=== PATIENT | female | born 1965 | race Caucasian/White ===

== ENCOUNTER 2024-03-11 13:45 | Outpatient (REF) | payer OTHER, SELFPAY ==
--- NOTE | ~2024-03-11 | XR_ITS ---
EXAMINATION: XR HAND RIGHT CLINICAL INFORMATION: Pain in right hand. M79.641. Patient states pain for a month on second digit. Painful nodule at base of 2nd metacarpal. COMPARISON: None TECHNIQUE: PA, lateral, and oblique views of the right hand. FINDINGS: Normal bone mineralization. No fracture, dislocation, or suspicious focal bony lesion. Normal alignment. In the second digit, ulnar aspect of the PIP joint, there is a punched-out appearing a marginal periarticular erosion, suspicious for gouty arthropathy. There is mild soft tissue swelling of this region. No additional significant arthropathy. There is a bone island in the fifth digit middle phalanx. Carpal bones are intact, normally aligned, without arthritis. Soft tissues otherwise normal. XR/XR hand RT min 3V IMPRESSION: 1. Findings suspicious for gouty arthropathy of the PIP joint of the second digit. 2. Remainder of the examination is normal. Electronically signed by: Ed Henry MD 04/20/2024 08:39 AM [facility]
[2024-03-11 15:07] LABS: MANUAL DIFF FLAG NO
[2024-03-11 16:08] LABS: Basophils Percent Auto 0.3 % (0-2); Eosinophils Absolute Auto 0.1 X10*3/uL (0.0-0.4); Eosinophils Percent Auto 0.8 % (0-4); Hematocrit 38.6 % (37.0-47.0); Hemoglobin 13.2 g/dl (12.0-16.0); Imm Gran Abs Auto 0.03 X10*3/uL (0.00-0.03); Imm Gran Pct Auto 0.4 % (0.0-0.4); Lymphocytes Absolute Auto 1.9 X10*3/uL (1.2-4.9); Lymphocytes Percent Auto 25.9 % (20-40); Mean Corpuscular HGB Conc 34.2 g/dl (31.0-35.0); Mean Corpuscular Hemoglobin 31.3 pg (27.0-33.0); Mean Corpuscular Volume 91.5 fL (80.0-98.0); Mean Platelet Volume 9.9 fL (9.4-12.3); Monocytes Absolute Auto 0.5 X10*3/uL (0.1-1.2); Monocytes Percent Auto 7.1 % (2-11); Neutrophils Absolute Auto 4.9 x10*3/uL (2.0-8.3); Neutrophils Percent Auto 65.5 % (45-73); Platelet Count 277 X10*3/uL (160-400); Red Blood Count 4.22 X10*6/uL (4.20-5.50); Red Cell Distribution Width 12.7 % (11.0-16.0); White Blood Count 7.5 X10*3/uL (4.8-10.8)
[2024-03-11 16:35] LABS: Aspartate Amino Transferase 29 U/L (5-31); Estimated Glomerular Filt Rate > 60
[2024-03-11 16:58] LABS: Alanine Aminotransferase 25 U/L (0-31)
== END 2024-03-11 13:46 | disposition home or self-care (01) ==
LOC: HO.LAB 13:45
PROVIDERS: PCP Physician Assistant Surgical; Visit Provider Internal Medicine Rheumatology
DX: M79.641 Pain in right hand (principal); Z79.60 Long term (current) use of unspecified immunomodulators and immunosuppressants
CPT/HCPCS: 36415; 73130; 82565; 84450; 84460; 85025

== ENCOUNTER 2024-03-11 13:45 | Outpatient (AMB) | payer OTHER, SELFPAY ==
--- OUTSIDE RECORDS SUMMARY | 2024-03-11 13:47 | XMS_ITS | Patient Health Record ---
Author Organization [facility] Address [address] [place] [address] Care Team Providers Care Straw Hat Plunger Operator Name Role Phone Valdemar Shannon Primary Care Provider Unavailzayda e Black, Yessica Unavailable [phone] Allergies Allergen (clinical drug ingredient) Drug/Non Drug Allergy documented on EMR Reaction Allergy Type Onset Date Status acetaminophen / oxycodone Percocet swelling, itchy, rash Drug Allergy Active sulfa Swelling, itchy, rash Drug Allergy Active Reason For Referral No Information Medications Medication SIG (Take, Route, Fr equency, Duration) Notes Start Date End Date Status Custom Orthotics as directed 01/12/2016 Active Zetia Active AFO-fixed . 1 . Wear daily for . 06/12/2016 Active Ibuprofen 800 MG 1 tablet Orally Thre e times a day for 30 day(s) 05/28/2016 Active Physical Therapy 3-4x per week for 3-4 weeks 06/12 Active Physical Therapy 3-4x per week for 3-4 weeks Active Calan 240 mg Active Spironolactone Activ e Diane Active Social History Tobacco Use: Social History Observation Description Date Details (start date - stop date) Never Smoker NA - NA Tobacco Use/Smoking Question Answer Notes Are you a: nonsmoker Additional Findings: Tobacco Non-User Current no n-smoker Alcohol Screen Question Answer Notes Did you have a drink contain ing alcohol in the past year? Yes How often did you have a dri nk containing alcohol in the past year? 2 to 4 times a month (2 points) Points 2 Interpretation Negative Tobacco use other than smoking: Question Answer Notes Are you an other tobacco user? No Problems Problem Type SNOMED Code ICD Code Onset Dates Problem Status W/U Status Risk Notes Problem Localized, primary osteoarthritis of the ankle and/or foot (287736219) Primary osteoarthrit is, left ankle and foot (M19.072) Active confirmed Plan Of Treatment Pending Test Test Name Order Date MRI : Foot, left 05/23/2016 Tc99 3 phase Bone Scan 05/07/2016 34812-Blchhsft Plate 05/07/2016 49535-Ogxxhnlg Plate 04/24/2016 28806-Qcwuuwex Plate 05/23/2016 19401-Xmfdaefe Plate 05/28/2016 24719-Gjtipjed Plate 06/12/2016 15735-Hsiozxjv Plate 07/03/2016 17978- Debride <25 sq cm 07/03/2016 11997- Debride <25 sq cm 06/12/2016 12891- Debride <25 sq cm 05/28/2016 61151- Debride <25 sq cm 05/23/2016 14787- Debride <25 sq cm 05/07/2016 33116, J6112-CEOMS/INJECT, JOINT/BURSA 1 04/21/2015 Next Appt Details Provider Name:Yessica Mack , 04/14/2024 01:00:00 PM, [address] [facility], [place], [address], Insurance Providers Payer Name Payer Address Payer Phone Subscriber Number Group Number Insured Name Patient Relationship to Insured Coverage Start Date Coverage End Date [facility] [address] [place] [address] [phone] [id number] Leeann Camacho Self - patient is the insured Medical (General) History Medical History History ICD Code Chicken pox Gall bladder problems Headaches Surgical History Surgery Date(Month/Year) gall stones 1996 carpal tunnel surgery Vericose veins 2011
[2024-03-11 13:51] VITALS: BP 122/72; PULSE 71; O2SAT 97; BMI 28.0
--- NOTE | 2024-03-11 13:51 | MHC.OFFVIS ---
Vital Signs 03/11/24 13:51 Height 5 ft 6.5 in Weight 176 lb 5.917 oz BMI 28.0 BP 122/72 Blood Pressure Location Lt brachial Position Sitting Pulse 71 Pulse Source Pulse Oximeter Pulse Oximetry (%) 97 Oxygen Delivery Method Room Air Intake Visit Reasons: Arthitis Intake Note: Patient presents for follow up on osteoarthritis. Allergies Sulfa (Sulfonamide Antibiotics) Allergy (Intermediate, Verified 03/11/24 13:55) Itching acetaminophen [From Percocet] Allergy (Mild, Verified 03/11/24 13:55) rash, itchy oxycodone [From Percocet] Allergy (Mild, Verified 03/11/24 13:55) rash, itchy hydrocet Allergy (Mild, Uncoded 03/11/24 13:55) rash, itchy HPI HPI Arthitis: Details: Over a week ago she has noticed a painful nodule on the palmar aspect of her hand. Pressure applied to it when she is handling things elicits pain. She continues to take Celebrex 200 mg twice a day. [facility] Medical History (Updated 03/11/24 @ 14:19 by Bipin Toro MD) Varicose veins of both lower extremities Osteoarthritis Surgical History (Updated 03/11/24 @ 13:59 by Kinsey Cantrell CMA) H/O removal of cyst S/P foot surgery Family History (Updated 03/11/24 @ 14:00 by Kinsey Cantrell CMA) Father Bladder cancer Melanoma Mother Afib Social History (Updated 03/11/24 @ 14:01 by Kinsey Cantrell CMA) Alcohol intake: current Alcohol intake frequency: holidays/special occasions only Alcohol type: wine Patient Tobacco Use Status: Never used Tobacco Review of Systems Const All systems reviewed & are unremarkable except as noted in HPI and below Physical Exam Vital Signs: Last Vital Signs Pulse 71 03/11/24 13:51 BP 122/72 03/11/24 13:51 Pulse Ox 97 03/11/24 13:51 Oxygen Delivery Method Room Air 03/11/24 13:51 BMI result Body Mass Index 28.0 Const Other: General: Comfortable CVS: RRR Respiratory: clear to auscultation bilaterally. Good respiratory effort Skin: No lesions seen MSK: Tender nodule less than 0.5 mm diameter palpated palmar aspect at the base of 2nd metacarpal right hand. Heberden's nodes present. Subluxation at DIPs. No synovitis. She is able to make a fist with her hands. Assessment & Plan Assessment & Plan (1) Osteoarthritis of hands, bilateral: Comment: Pain is controlled on Celebrex. In the past she has had kidney insufficiency. Code(s): M19.041 - Primary osteoarthritis, right hand; M19.042 - Primary osteoarthritis, left hand Category: Medical Qualifiers: Osteoarthritis type: primary Qualified Code(s): M19.041 - Primary osteoarthritis, right hand; M19.042 - Primary osteoarthritis, left hand Plan: Labs ordered for drug monitoring on chronic NSAID Continue Celebrex 200 mg twice a day [facility] Return to clinic in 3 months (2) Hand pain, right: Comment: Acute onset painful nodule at the base of 2nd metacarpal of unclear etiology. I will obtain x-ray for further evaluation. 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
== END 2024-03-11 14:20 | disposition home or self-care (01) ==
PROVIDERS: PCP Physician Assistant Surgical; Visit Provider Internal Medicine Rheumatology
DX: M19.041 Primary osteoarthritis, right hand (principal); M19.042 Primary osteoarthritis, left hand; M79.641 Pain in right hand
CPT/HCPCS: 99213

== ENCOUNTER → 2024-03-11 15:09 | Outpatient (BNV) | payer OTHER, SELFPAY | PROVIDERS: PCP Physician Assistant Surgical; Visit Provider Radiology Diagnostic Radiology | DX: M85.842 Other specified disorders of bone density and structure, left hand (principal) | CPT/HCPCS: 73130 ==

== ENCOUNTER 2024-04-21 14:40 | Outpatient (REF) | payer OTHER, SELFPAY ==
[2024-04-21 16:50] LABS: C Reactive Protein < 0.10 mg/dL (< or = 0.50)
[2024-04-21 16:56] LABS: Rheumatoid Factor < 13.0 IU/mL (<15.0)
--- OUTSIDE RECORDS SUMMARY | 2024-04-21 17:11 | XMS_ITS | Patient Health Record ---
Author Organization [employer] [facility] Address [address] [place] [address] Care Team Providers Care Steel Roller Name Role Phone GINA BARON Primary Care Provider JUSTIN Nicholson Unavailable [phone] Allergies Allergen (clinical drug ingredient) Drug/Non Drug Allergy documented on EMR Reaction Allergy Type Onset Date Status acetaminophen / oxycodone Percocet ITCHY, RED, SWELLING Drug Allergy Active Substance with sulfonamide structure and antibacterial mechanism of action (substance) Sulfa Antibiotics RASH, ITCHY, RED Drug Allergy Active Reason For Referral No Information Medications Medication SIG (Take, Route, Fr equency, Duration) Notes Start Date End Date Status Estradiol 10 MCG 1 tablet Vaginal Thr ee times a Week for 365 days 11/03/2023 Active Calan SR 240 MG Active Celecoxib 200 MG 1 capsule with food Orally Once a day Active Simvastatin 10 MG 2 tablets in the jie librado Orally Once a day Active Social History Tobacco Use: Social History Observation Description Date Details (start date - stop date) Never Smoker NA - NA AUDIT-C (Standard) Question Answer Notes Did you have a drink contain ing alcohol in the past year? Yes How often did you have six o r more drinks on one occasion in the past year? Never (0 point) How many drinks did you have on a typical day when you were drinking in the past year? 1 or 2 drinks (0 point) How often did you have a dri nk containing alcohol in the past year? 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 Problem Hyperlipidemia (71751878) Hyperlipidemia, unspecified (E78.5) Active confirmed Problem Refractory migraine with aura (624532786) Migraine with aura, intractable, without status migrainosus (G43.119) Active confirmed Vital Signs Temperature 98.0 degrees Fahrenheit 11/03/2023 Blood pressure diastolic 82 mm Hg 11/03/2023 Height 65 in 11/03/2023 Blood pressure systolic 116 mm Hg 11/03/2023 Weight 165 lbs 11/03/2023 BMI 27.45 kg/m2 11/03/2023 Encounters Encounter Location Date Provider Diagnosis [facility] [address] [place] [address] 11/03/2023 JUSTINIsis PIERCECASTRO Encounter for gynecological examination (general) (routine) without abnormal findings Z01.419 ; Encounter for screening mammogram for malignant neoplasm of breast Z12.31 and Postmenopausal atrophic vaginitis N95.2 Assessments Encounter Date Diagnosis (ICD Code) Assessment Notes Treatment Notes Treatment Clinical Notes Section Notes 11/03/2023 Encounter for gynecological examination (general) (routine) without abnormal findings (ICD-10 - Z01.419) During the visit, the following areas of concern were addressed: Discussed cervical cancer screening with either cytology alone every 3 years or high risk HPV co-testing every 5 years as per ASCCP guidelines. Advised continued annual pelvic exams. Patient encouraged to increase her level of exercise. SBE technique encouraged/tau ght. Patient reminded when annual mammogram is due. Patient encouraged to keep colon screening up to date. 11/03/2023 Encounter for screening mammogram for malignant neoplasm of breast (ICD-10 - Z12.31) 11/03/2023 Postmenopausal atrophic vaginitis (ICD-10 - N95.2) Plan Of Treatment Pending Test Test Name Order Date MM Digital Screening Mammogram 3D 2023 Next Appt Details Provider Name:JUSTIN RIVERA Darlene, 11/04/2024 08:30:00 AM, [address], [place], [address], Insurance Providers Payer Name Payer Address Payer Phone Subscriber Number Group Number Insured Name Patient Relationship to Insured Coverage Start Date Coverage End Date [facility] [address] [facility] [place], [place] [address] [id number] DOMI MARTIN Self - patient is the insured 2 Medical (General) History Medical History History ICD Code Hyperlipidemia, unspecified E78.5 Migraine with aura, intractable, without status migrainosus G43.119 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
--- OUTSIDE RECORDS SUMMARY | 2024-04-21 17:11 | XMS_ITS | Patient Health Record ---
Author Organization [facility] Address [address] [place] [address] Care Team Providers Care Director Of Cardiac Rehabilitation Name Role Phone Shiva Valdemar Primary Care Provider Unavailabl e Black, Yessica Unavailable [phone] Allergies Allergen (clinical drug ingredient) Drug/Non Drug Allergy documented on EMR Reaction Allergy Type Onset Date Status Hydrocet hyperactivity Drug Allergy Act jeanne acetaminophen / oxycodone Percocet hyperactivity Drug Allergy Active Substance with sulfonamide structure and antibacterial mechanism of action (substance) Sulfa Antibiotics swelling, itchy, rash Drug Allergy Active Reason For Referral No Information Medications Medication SIG (Take, Route, Frequency, Duration) Notes Start Date End Date Status Terbinafine HCl 250 MG 1 tablet Orally O nce a day for 7 days days then stop for 3 weeks repeat cycle for 90 days 04/14/2024 Active CeleBREX 200 MG 1 capsule with food Orally Once a day Active Calan 240 mg Active Diane Not-Taking Zetia Not-Taking Custom Orthotics as directed 01/12/2016 Not-Taking Ibuprofen 800 MG 1 tablet Orally Thre e times a day for 30 day(s) 05/28/2016 Not-Ta lam AFO-fixed . 1 . Wear daily for . 06/12/2016 Not-Taking Physical Therapy 3-4x per week for 3- 4 weeks 06/12/2016 Not-Taking Physical Therapy 3-4x per week for 3- 4 weeks Not-Taking Simvastatin 10 MG 2 tablets in the jie librado Orally Once a day Active Spironolactone 25 MG 1 tablet Orally Active Social History Tobacco Use: Social History Observation Description Date Details (start date - stop date) Never Smoker NA - NA Tobacco use other than smoking: Question Answer Notes Are you an other tobacco user? No Tobacco Control (Standard) Question Answer Notes Tobacco use: Nonsmoker Additional Findings: Tobacco non-user Current no nsmoker AUDIT-C (Standard) Question Answer Notes Did you have a drink contain ing alcohol in the past year? Yes How often did you have six o r more drinks on one occasion in the past year? Declined to specify (0 point) How many drinks did you have on a typical day when you were drinking in the past year? Declined to specify (0 point) How often did you have a dri nk containing alcohol in the past year? 2 to 4 times a month (2 points) Points 2 Interpretation Negative Problems Problem Type SNOMED Code ICD Code Onset Dates Problem Status W/U Status Risk Notes Problem Localized, primary osteoarthritis of the ankle and/or foot (654464825) Primary osteoarthrit is, left ankle and foot (M19.072) Active confirmed Vital Signs Blood pressure diastolic 55 mm Hg 04/14/2024 Height 5ft 7in in 04/14/2024 Blood pressure systolic 136 mm Hg 04/14/2024 Weight 165 lbs 04/14/2024 BMI 25.84 kg/m2 04/14/2024 Encounters Encounter [facility] Date [facility] [address] 04/14/2024 Yessica Black Pain in right toe(s) M79.674 ; Onychomycosis B35.1 and Pain in left toe(s) M79.675 [facility] [address] [place] [address] 04/14/2024 Yessica Black Assessments Encounter Date Diagnosis (ICD Code) Assessment Notes Treatment Notes Treatment Clinical Notes Section Notes 04/14/2024 Pain in right toe(s) (ICD-10 - M79.674) 04/14/2024 Onychomycosis (ICD-10 - B35.1) 04/14/2024 Pain in left toe(s) (ICD-10 - M79.675) Plan Of Treatment Pending Test Test Name Order Date MRI : Foot, left 05/23/2016 Tc99 3 phase Bone Scan 05/07/2016 *Liver Function Test (LFT) 04/15/2024 45119-Jqiwnqzy Plate 06/12/2016 13275-Kzatilen Plate 07/03/2016 02929-Bvhybnqo Plate 05/07/2016 74112-Mjvcysxv Plate 04/24/2016 51892-Ovdbtolj Plate 05/23/2016 39305-Vtpxvgqn Plate 05/28/2016 26125- Debride <25 sq cm 05/28/2016 68508- Debride <25 sq cm 05/23/2016 47113- Debride <25 sq cm 05/07/2016 54304- Debride <25 sq cm 07/03/2016 03182- Debride <25 sq cm 06/12/2016 05819, E8709-LLHYZ/INJECT, JOINT/BURSA 1 04/21/2015 Next Appt Details Provider Name:Yessica Marinelli Frederick , 07/13/2024 03:00:00 PM, [address] [facility], [place], [address], Insurance Providers Payer Name Payer Address Payer Phone Subscriber Number Group Number Insured Name Patient Relationship to Insured Coverage Start Date Coverage End Date [facility] [address] [place] [address] [id number] Leeann Camacho Self - patient is the insured 2 Medical (General) History Medical History History ICD Code Chicken pox Gall bladder osteoarthritis CAD (Cholesterol) covid-19 Headaches/Migraines Surgical History Surgery Date(Month/Year) gall stones 1996 carpal tunnel surgery Vericose veins 2010 Gall bladder removal 1995 left foot- tendon transfer, heel shift, muscle relief 2016
--- OUTSIDE RECORDS SUMMARY | 2024-04-21 17:11 | XMS_ITS ---
Author Organization [facility] Address [address] [place] [address] Care Team Providers Care Field Spec Name Role Phone Shannon Valdemar Primary Care Provider Unavailabl e Black, Yessica Unavailable [phone] Allergies Allergen (clinical drug ingredient) Drug/Non Drug Allergy documented on EMR Reaction Allergy Type Onset Date Status Hydrocet hyperactivity Drug Allergy Act jeanne acetaminophen / oxycodone Percocet hyperactivity Drug Allergy Active Substance with sulfonamide structure and antibacterial mechanism of action (substance) Sulfa Antibiotics swelling, itchy, rash Drug Allergy Active REASON FOR VISIT Fungal Nails Medications Medication SIG (Take, Route, Frequency, Duration) Notes Start Date End Date Status Terbinafine HCl 250 MG 1 tablet Orally O nce a day for 7 days days then stop for 3 weeks repeat cycle for 90 days 04/14/2024 Active Ibuprofen 800 MG 1 tablet Orally Thre e times a day for 30 day(s) 05/28/2016 Not-Ta lam AFO-fixed . 1 . Wear daily for . 06/12/2016 Not-Taking Physical Therapy 3-4x per week for 3- 4 weeks 06/12/2016 Not-Taking Physical Therapy 3-4x per week for 3- 4 weeks Not-Taking CeleBREX 200 MG 1 capsule with food Orally Once a day Active Calan 240 mg Active Diane Not-Taking Zetia Not-Taking Custom Orthotics as directed 01/12/2016 Not-Taking Simvastatin 10 MG 2 tablets in [...] month (2 points) Points 2 Interpretation Negative Vital Signs Height 5ft 7in in 04/14/2024 Weight 165 lbs 04/14/2024 BMI 25.84 kg/m2 04/14/2024 Blood pressure systolic 136 mm Hg 04/14/19 25 Blood pressure diastolic 55 mm Hg 025 Encounters Encounter Location Date Provider Diagnosis [facility] [place] [address] [place] [address] 04/14/2024 Yessica Mack Pain in right toe(s) M79.674 ; Onychomycosis B35.1 and Pain in left toe(s) M79.675 Assessments Encounter Date Diagnosis (ICD Code) Assessment Notes Treatment Notes Treatment Clinical Notes Section Notes 04/14/2024 Pain in right toe(s) (ICD-10 - M79.674) 04/14/2024 Onychomycosis (ICD-10 - B35.1) 04/14/2024 Pain in left toe(s) (ICD-10 - M79.675) Plan Of Treatment Medication Medication Name Sig Start Date Stop Date Notes Terbinafine HCl 250 MG 1 tablet Orally O nce a day for 7 days days then stop for 3 weeks repeat cycle for 90 days 04/14/2024 Next Appt Details Follow Up: 2-3 Months, Sherie n: Provider Name:Yessica Mack , 07/13/2024 03:00:00 PM, [address] [facility], [place], [address], Progress Notes * Migue MARTIN:1965 (58 yo F)Acc No.[id number]:04/14/2024 Progress Notes Patient:?Leeann MARTIN Provider:?Yessica Mack DPM :1965???Age:58 Y???Sex:Female D ate:04/14/2024 Address: [address], [id number] Pcp:Valdemar Shannon Subjective: * Chief Complaints: * ???Fungal Nails * HPI: ???Painful Nails:?Pt States Last PCP Visit:?Date:?03/12/2024 ?Nature:?aching, tender, discolored, thick.?Location:?, Both feet.?Duration:?, several months.?Course:?worse.?Aggravated by:?shoegear causing difficulty standing/walking.?Treatments:?none.? * ROS:?General/Constitutional:?Nausea?denies.?Vomiting?denies.?Hunger Thirst?denies.?Loss appetite?denies.?Chills?denies.?Fatigue?denies.?Fever?denies.?Night Sweats?denies.?Unexplained weight loss?denies.?Unexplained weight gain?denies.?HEENTM:?Dentures?denies.?Dizziness?denies.?Glasses/contacts?denies.?Retinopathy?de nies.?Blurred/double vision?denies.?TMJ?denies.?Discharge/drainage?denies.?Implants?denies.?Sore throat?denies.?Dental implants?denies.?Hard of hearing ?denies.?Difficulty chewing/swallowing/speaking?denies.?Nose bleeds?denies.?Sore mouth?denies.?Respiratory:?On Oxygen?denies.?Pneumonia/pleurisy?denies.?Bronchitis?denies.?Emphysema?denies.?C oughing?denies.?Cough blood?denies.?Shortness of breath?denies.?Wheezing?denies.?Cardiovascular:?Pacemaker?denies.?MVP?denies.?WPW?denies.?CHF?denies.?Heart attack?denies.?Septal defect?denies.?Rapid beat?denies.?Chest pain ?denies.?Atrial Fib.?denies.?Murmur/Palpitations?denies.?Gastrointestinal:?Hemorrhoids?denies.?Stomach/Abdominal pain?denies.?Dark blood stool?denies.?Irritable bowel ?denies.?Constipation?denies.?Diarrhea?denies.?Hematology:?Swelling?denies.?Clots?denies.?Varicose Veins?denies.?Bruising?denies.?Bleeding problem?denies.?Genitourinary:?Blood urine?denies.?Frequent/Painfu/urination/bladder control?denies.?Kidney stones?denies.?Infection (UTI)?denies.?Nephropathy?denies.?sex trans dis (STD)?denies.?Prostate?denies.?Musculoskeletal:?Hammertoes?admits.?Bunions?denies.?Back Pain?denies.?Muscle Cramps/ Resting?admits.?Muscle cramps / walking?denies.?Generalized aches and pains?denies.?Weakness?denies.?Integ.:?Brewster?denies.?Scars?denies.?Corns/calluses?denies.?Ingrown nails?admits.?Painful nails?admits.?Open Sores?denies.?Rashes?denies.?Neurologic:?Difficulty sleeping?denies.?Brain disorder?denies.?Numbness?denies.?Balance trouble?denies.?Confusion?denies.?Fainting/blackouts?denies.?Tingling?denies.?Tr emors?denies.? * Medical History:? * Surgical History:?gall stone s 1996carpal tunnel surgery Vericose veins 2011Gall bladder removal 1996left foot- tendon transfer, heel shift, muscle relief 2016 * Hospitalization/Major Diagno stic Procedure:?Denies Past Hospitalization * Family History:?Mother: dece ased, foot problems, poor circulation, diagnosed with Unspecified essential hypertension, Family history of arthritis.?Father: , kidney/liver disease, diagnosed with Other malignant neoplasm of unspecified site, Unspecified essential hypertension.?Siblings: diagnosed with Unspecified essential hypertension.? * Social History:?Tobacco Use:?Tobacco use other than smoking?Are you an other tobacco user??No ?Tobacco Control (Standard)?Tobacco use:?Nonsmoker ?Additional Findings: Tobacco non-user?Current nonsmoker ???Drugs/Alcohol:?Drugs?Have you used drugs other than those for medical reasons in the past 12 months??No ???Miscellaneous:?Caffeine: yes, 1-2 cups per day. ?Children: yes. ?Exercise: yes, walking, gardening/yard work, softball. ?Marital status: . ?Occupation: [employer]. ???Drug/Alcohol:?AUDIT-C (Standard)?Did you have a drink containing alcohol in the past year??Yes ?How often did you have six or more drinks on one occasion in the past year??Declined to specify (0 point) ?How many drinks did you have on a typical day when you were drinking in the past year??Declined to specify (0 point) ?How often did you have a drink containing alcohol in the past year??2 to 4 times a month (2 points) ?Points?2 ?Interpretation?Negative * Medications:?TakingSimvastat in 10 MG Tablet 2 tablets in the evening Orally Once a day Spironolactone 25 MG Tablet 1 tablet Orally CeleBREX 200 MG Capsule 1 capsule with food Orally Once a day Calan 240 mg Taking Simvastatin 10 MG Tablet 2 tablets in the evening Orally Once a day Taking Spironolactone 25 MG Tablet 1 tablet Orally Taking CeleBREX 200 MG Capsule 1 capsule with food Orally Once a day Taking Calan 240 mg Not-Taking/PRNHeather Zetia Custom Orthotics as directed Ibuprofen 800 MG Tablet 1 tablet Orally Three times a day AFO-fixed . Ankle-Foot Orthotic 1 . Wear daily Physical Therapy 3-4x per week for 3-4 weeks Physical Therapy 3-4x per week for 3-4 weeks Medication List reviewed and reconciled with the patientNot-Taking/PRN Diane Not-Taking/PRN Zetia Not-Taking/PRN Custom Orthotics as directed Not-Taking/PRN Ibuprofen 800 MG Tablet 1 tablet Orally Three times a day Not-Taking/PRN AFO- fixed . Ankle-Foot Orthotic 1 . Wear daily Not-Taking/PRN Physical Therapy 3-4x per week for 3-4 weeks Not-Taking/PRN Physical Therapy 3-4x per week for 3-4 weeks Medication List reviewed and reconciled with the patient * Allergies:?Percocet: hyperac tivity - AllergySulfa Antibiotics: swelling, itchy, rashHydrocet: hyperactivityyes[Allergies Verified] Objective: * Vitals:?Ht: 5ft 7in, Wt:165, BMI:25.84, Shoe size: 10, BP:136/55mm Hg, Ht-cm: 170.18 cm, Wt-k.84 kg. * Examination: ???General Examination: ?GENERAL APPEARANCE:?Reveals a pleasant, alert, well nourished, well- developed, well hydrated individual, who demonstrates proper attention to hygiene/body habitus, and is in no acute distress, Pt serves as own historian for office visit today.?ORIENTED:?person, place, and time.?Vascular: ?DP PULSES (B):?2/4, B/L.?PT PULSES (B):?2/4, B/L.?CAPILLARY FILL TIME:?immediate, all digits, B/L.?TROPHIC CONDITION-TEXTURE/ELASTICITY/TURGOR/HAIR GROWTH (B):?normal, B/L.?TEMPERTURE GRADIENT (C):?normal, warm to cool, proximal to distal, B/L, B/L.?PIGMENTATION:?normal, B/L.?EDEMA (C):?absent, B/L.?Neurological: ?SENSORY:?Neurological exam reveals intact sensorium, pain sensation normal, vibration sensation intact, pinprick sensation is normal in the lower extremities, Pt denies, anesthesia, burning, paresthesia, tingling, B/L.?Nails: ?NAILS are:?Elongated, overgrown, dystrophic, lytic, greater than 3mm thick, discolored and friable with crumbly malodorous subungual debris, with pain on palpation, , TA, T1, T2, T3, T4, T5, T6, T7, T8, T9.?Dermatologic: ?SKIN FINDINGS:?Skin exam reveals normal color, texture, elasticity, and turgor. There are no masses, nor excrescences. The interspaces are clear, B/L.? Assessment: * Assessment: 1.?Pain in right toe(s) - M7 9.674???2.?Onychomycosis - B35.1 (Primary)???3.?Pain in left toe(s) - M79.675??? Plan: * Treatment: * Procedure Codes:? * Preventive Medicine:? ??Counseling:?Discussion:?-03: Office or other outpatient visit for the evaluation and management of a new patient, which required a medically appropriate history and/or examination and LOW level of DECISION MAKING for: 1 STABLE ACUTE UNCOMPLICATED PROBLEM, 2 OR MORE MINOR PROBLEMS, OR 1 STABLE CHRONIC PROBLEM, THAT POSE(S) A LOW RISK FOR MORBIDITY/MORTALITY. The visit on the day of the encounter encompassed interpreting the data and educating the patient as to the nature of their condition, treatment options available according to their individual PMH, meds, allergies, and overall health/living conditions, as well as any potential risks or complications that may occur from a failure to adhere to, and participate in, the recommended course of therapy. The discussion included a complete verbal, and/or written explanation of the examination results, any x-rays taken, the proposed diagnosis, and outline of the treatment plan. A schedule for future care needs was also explained. The patient verbalized an understanding of the instructions at this time and agreed to be an active participant in their treatment. If the patient should think of any questions or concerns after the visit, I have encouraged the patient to call the office.?Fungal Nail Counseling:?The patient was counseled on the diagnosis, potential etiologies (including, but not limited to, environmental factors, genetic, immune deficiency), and the multiple treatment options for Onychomycosis. We discussed the risks and benefits of each option from performing no treatment, to ultraviolet light shoe treatment, to laser nail treatment, to applying topical antifungals, to taking oral antifungal medication, to surgical removal of the involved nail(s) with or without performing a matricectomy, or any combination thereof. We discussed the advantages and disadvantages of each of possible treatment and importance for adherence to all the recommended therapies for optimum success. This includes the necessity for weekly emery board self nail home debridements, and control the nail and skin environment as much as possible by only using a fresh, dry pair of shoes/socks each day, as well as keeping the skin as dry as possible through the use of sprays/powders if necessary. The patient was instructed to discard the emery board after use to prevent reinfection of the involved nail(s). We discussed the mycological and visual clinical effectiveness of topical vs oral antifungal treatments as well as each ones potential side effects and/or any patient- specific medication interactions. We discussed the reasons behind the important requirement of regular liver function testing with oral antifungal therapy for safety. Patient questions regarding use, dosage, successful outcomes, blood tests, and possible pharmaceutical interactions were reviewed and the patient verbalized that all answers were clearly understood., Previous LFT results were reviewed and discussed with the patient , PULSE: Due to the patients PMH and active medication profile, Pulse Lamisil oral anti-fungal therapy was recommended by taking 1 week of med per month for 12 months, Discussed limited alcohol use and Tylenol use while taking Lamisil to reduce impact on Liver Function, Performance of this nail treatment by a nonprofessional would put this patients foot and overall health at risk. Therefore, debridement to affected nail(s), as described in exam, was performed exclusively by the physician of record to reduce/remove overall nail length, girth, thickness, subungual debris, and necrotic tissue, by manual and/or electrical means through the use of a nail nipper and/or dremel-type back grinder, to a more viable healthy nail plate or bed tissue. Silver nitrate used for any petechial bleeding as necessary.? * Follow Up:?2-3 Months * Images: * Sign off status: Completed true * Provider:?Yessica Mack DPM Date:?2024 Generated for Curt cao/Jorge/Melissa on:?04/21/2024 05:11 PM EST History and Physical Notes * HPI (History of Present Illness) Category Sub-Category Detail Notes Category Not es Painful Nails Aggravated by: shoegear causing difficulty standing/walking Course: worse Duration: , several months Location: , Both feet Nature: aching, tender, disc olored, thick Treatments: none Pt States Last PCP Visit: Date:: 03/12/2024 Examination Category Sub-Category Detail Notes Category Not es Neurological SENSORY: Neurological exa m reveals intact sensorium, pain sensation normal, vibration sensation intact, pinprick sensation is normal in the lower extremities, Pt denies, anesthesia, burning, paresthesia, tingling, B/L Dermatologic SKIN FINDINGS: Skin exam reveal s normal color, texture, elasticity, and turgor. There are no masses, nor excrescences. The interspaces are clear, B/L General Examination GENERAL APPEARANCE: Reveals a pleasant, alert, well nourished, well-developed, well hydrated individual, who demonstrates proper attention to hygiene/body habitus, and is in no acute distress, Pt serves as own historian for office visit today ORIENTED: person, place, and t kellie Vascular DP PULSES (B): 2/4, B/L PT PULSES (B): 2/4, B/L CAPILLARY FILL TIME: immediate, all digi ts, B/L TEMPERTURE GRADIENT (C): normal, warm to cool, proximal to distal, B/L, B/L TROPHIC CONDITION-TEXTURE/ELASTICITY/TURGOR/HAIR GROWTH (B): normal, B/L EDEMA (C): absent, B/L PIGMENTATION: normal, B/L Nails NAILS are: Elongated, overg rown, dystrophic, lytic, greater than 3mm thick, discolored and friable with crumbly malodorous subungual debris, with pain on palpation, , TA, T1, T2, T3, T4, T5, T6, T7, T8, T9
--- OUTSIDE RECORDS SUMMARY | 2024-04-21 17:11 | XMS_ITS ---
Author Organization [facility] Address [address] [place] [address] Care Team Providers Care Icu Registered Nurse Name Role Phone Valdemar Shannon Primary Care Provider UnavailYessica Arthur Unavailable [phone] REASON FOR VISIT [facility] liver function test results Encounters Encounter Location Date Provider Diagnosis [facility] [address] [place] [address] 04/14/2024 Yessica Mack Plan Of Treatment Next Appt Details Provider Name:Yessica Mack , 07/13/2024 03:00:00 PM, [address] [facility], [place], [address], Progress Notes * Savage MARTINaDOB:1965 (58 yo F)Acc No.[id number]:04/14/2024 Patient:?Leeann MARTIN :1965???Age:58 Y???Sex:Female Address:[address] [place], [address] * * Date:?
--- OUTSIDE RECORDS SUMMARY | 2024-04-21 17:11 | XMS_ITS | Clinical Summary ---
Author Organization [facility] Address [address] [place] [address] Care Team Providers Care Food Science Technician Name Role Phone Saurav Irvin Primary Care Provider [phone] Allergies Active Allergy Reactions Criticality Noted Date Comments Perloxx 10/23/2020 Reactions: Rash Sulfa Antibiotics 10/23/2020 Reactions: Rash Medications Simvastatin (ZOCOR) 10 MG tablet 0 10/23/2020 Active Spironolactone (ALDACTONE) 25 MG tablet 0 10/23/2020 Active Norethindrone, Contraceptive, (MICRONOR) 0.35 MG tablet 0 10/23/2020 Active Verapamil HCl CR (VERELAN) 240 MG 24 hr capsule 0 10/23/2020 Activ e Active Problems Problem Noted Date Diagnosed Date Cervicalgia 10/23/2020 Referred ear pain 10/23/2020 Family History Medical History Relation Name Comments Factor V Leiden Child factor V Lei den mutation : Child Cancer (?Type) Father malignant jane plasm of urinary bladder : Father Cancer - Renal Father malignant jane plasm of kidney : Father Cancer - Skin Father malignant neop lasm of skin : Father Cancer - Thyroid Father malignant n eoplasm of thyroid : Father Relation Name Status Comments Child Father Social History Tobacco Use Types Packs/Day Years Used Date Smoking Tobacco: Never Assessed Comments:Smoking Status:Does not use tobacco Comments Unknown Sex and Gender Information Value Date Recorded Sex Assigned at Not on file Legal Sex Female 7:48 PM EDT Gender Identity Not on file Sexual Orientation Not on file Plan of Treatment Health Maintenance Due Date Last Done Comments Hepatitis C Screening 1965 Pap Smear 1982 DTaP/Tdap/Td (1 - Tdap) 1984 Hep B (1 of 3 - 19+ 3-dose series) 1985 Mammogram/Breast Imaging 2006 Colon Cancer Screening 08/28/2011 Pneumococcal 50+ years (1 of 1 - PCV) 2016 Zoster (Shingrix) (1 of 2) 2016 COVID-19 Vaccine ( - 2023-2 5 season) 2023 Influenza (#1) 2023 HPV Vaccine Aged Out No longer eligi ble based on patient's age to complete this topic Hep A Aged Out No longer eligi ble based on patient's age to complete this topic Hib Aged Out No longer eligi ble based on patient's age to complete this topic Meningococcal ACWY Aged Out No longer eligible based on patient's age to complete this topic Care Teams Food Science Technician Relationship Specialty Start Date End Date Saurav Irvin [address] [place] [id number] PCP - General 11/04/22
--- OUTSIDE RECORDS SUMMARY | 2024-04-21 17:11 | XMS_ITS ---
[facility] Organization 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 Physical Medications Medication SIG (Take, Route, Fr equency, [...] Status Risk Notes Problem Postmenopausal atrophic vaginitis (60710453) Postmenopausal atrophic vaginitis (N95.2) Active confirmed Problem Hyperlipidemia (66497093) Hyperlipidemia, unspecified (E78.5) Active confirmed Problem Refractory migraine with aura (524573654) Migraine with aura, intractable, without status migrainosus (G43.119) Active confirmed Problem 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 Vital Signs Temperature 98.0 degrees Fahrenheit 11/03/19 24 Blood pressure systolic 116 mm Hg 11/03/19 24 Blood pressure diastolic 82 mm Hg 024 Height 65 in 11/03/2023 Weight 165 lbs 11/03/2023 BMI 27.45 kg/m2 11/03/2023 Encounters Encounter Location Date Provider Diagnosis [address] [place] [id number] 11/03/2023 JUSTIN RIVERAS Encounter for gynecological examination (general) (routine) without [...] vaginitis (ICD-10 - N95.2) Plan Of Treatment Medication Medication Name Sig Start Date Stop Date Notes Estradiol 10 MCG 1 tablet Vaginal Thr ee times a Week for 365 days 11/03/2023 Treatment Notes Assessment Notes Encounter for gynecological examination (general) (routine) without abnormal findings During the visit, the following areas of concern were addressed: Discussed cervical cancer screening with either cytology alone every 3 years or high risk HPV co-testing every 5 years as per ASCCP guidelines. Advised continued annual pelvic exams. Patient encouraged to increase her level of exercise. SBE technique encouraged/taught. Patient reminded when annual mammogram is due. Patient encouraged to keep colon screening up to date. Pending Test Test Name Order Date MM Digital Screening Mammogram 3D 2023 Next Appt Details Follow Up: 1 Year, Reason: Y early Certified Hyperbaric Technologist Exam Provider Name:UJSTIN Vela MIGUEL Colon, 11/04/2024 08:30:00 AM, [address] [facility], [address], [place], [address], Progress Notes * ILAN MARTINADOB:1965 (58 yo F)Acc No.[id number]:11/03/2023 Progress Note Patient:?LEEANN MARTIN Provider:?JUSTIN CASTRO MD :1965???Age:58 Y???Sex:Female D ate:11/03/2023 Address:[address] [place], [place] [id number] Pcp:GINA BARON Subjective: * Chief Complaints: * ???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 She is new to this practice, having received previous supervisor finishing department care with Dr Lim. She has been in state of good health since her last exam. She has the following concerns: vaginal dryness She has received the Janes & Janes?Covid-19 vaccine and 4 Moderna boosters. Relationship status: single. She is sexually active. Sexual partner(s): male. She does not wish to have STI testing. She does report vaginal dryness - lubricant is not sufficient. She does not have hot flashes/night sweats. The patient has never had an abnormal pap smear. Her most recent pap smear was 09/25/22 - NIL. Last tested for HPV on 09/20/20 - NIL, neg HR HPV. Next due for cotesting in 2025. She has not been diagnosed with breast cancer. She does have a family history of breast cancer - [facility] [place]. Her last mammogram was 11/07/22. She does not yet have her mammogram scheduled. She does not have a family history of colon cancer. She a has had a colonoscopy. The last colonoscopy was 2017 - follow up in 10 yrs. The patient does exercise. She exercises x 7 days/week by walking. She does not strength train. * ROS:?Annual Certified Hyperbaric Technologist Exam ROS:?Bowel habit changes?denies.?Bladder symptoms?denies.?Vaginal discharge, unusual?denies.?Vaginal itch or odor?denies.?weight or appetite changes?denies.?Chest pains, SOB?denies.?depression?denies.?Breast:?Denies?Breast lump.?Denies?Nipple discharge.?Hematology:?Denies?Swollen glands.?Skin:?Patient denies?changing moles.?Psychiatric:?Denies?Anxiety.? * Medical History:? * Certified Hyperbaric Technologist History:?/ Para?3/2.?Sexual activity?currently sexually active, with men.?Last Pap Smear:?09/25/22, NIL, 09/20/20, NIL, NEG HPV.?Mammogram:?11/07/22.?Abnormal Pap Smear:?no history of abnormal pap smears.?History of STD's:?none.?Menarche?14.?Colonoscopy?2017.? * OB History:?Total pregnancies?3.?Total living children?2.?NVD?2.? # 1:?elective terminations of (ETOP), 1st trimester, no complications.? # 2:?normal spontaneous vaginal delivery (), 10/20/90, [place], 8lb 15oz, no complications.? # 3?normal spontaneous vaginal delivery (), 12/20/93, Kinga, 8lb 2oz, no complications.? * Surgical History:?Tendon Tra nsfer/Heel Shift 2017Cholecystectomy 1996Colonoscopy 2017Varicose vein stripping both legs 2012Carpal Tunnel both wrists 2013 * Hospitalization/Major Diagno stic Procedure:?Childbirth cholecystectomy - 11 day stay * Family History:?Mother: dece ased 77 yrs, afib.?Father: 76 yrs, Bladder Cancer, Skin Cancer, Kidney Condition.?Maternal Grand Mother: breast cancer - in her 50's.?Brother Juan Alberto: alive 51 yrs, HTN, high cholesterol.?Brother Stephen: 30 yrs, overdose of cold medicines (2 meds interacted).?Brother Brian: alive 42 yrs, high cholesterol.?Sister Veronica: alive 49 yrs, varicose veins, carpal tunnel.? Denies family history of colon, uterine or ovarian cancers. * Social History:?Tobacco Use:?Tobacco Control (Standard)?Tobacco use:?Nonsmoker ???Drugs/Alcohol:?Drugs?Have you used drugs other than those for medical reasons in the past 12 months??No ???Miscellaneous:?Children: yes, 2. ?Domestic violence: no. ?Home smoke detector use: yes, smoke detectors, carbon monoxide detector. ?Housing: owns a home. ?Living with: daughter Kinga. ?Marital status: . 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 ?Pets: cats: 5. ?Sexual abuse: no. ?Verbal abuse: no. ???Drug/Alcohol:?AUDIT-C (Standard)?Did you have a drink containing alcohol in the past year??Yes ?How often did you have six or more drinks on one occasion in the past year??Never (0 point) ?How many drinks did you have on a typical day when you were drinking in the past year??1 or 2 drinks (0 point) ?How often did you have a drink containing alcohol in the past year??2 to 3 times a week (3 points) ?Points?3 ?Interpretation?Positive * Medications:?TakingSimvastat in 10 MG Tablet 2 tablets in the evening Orally Once a day Celecoxib 200 MG Capsule 1 capsule with food Orally Once a day Calan SR , Notes to Pharmacist: 240 MGMedication List reviewed and reconciled with the patientTaking Simvastatin 10 MG Tablet 2 tablets in the evening Orally Once a day Taking Celecoxib 200 MG Capsule 1 capsule with food Orally Once a day Taking Calan SR , Notes to Pharmacist: 240 MGMedication List reviewed and reconciled with the patient * Allergies:?Sulfa Antibiotics : RASH, ITCHY, RED - AllergyPercocet: ITCHY, RED, SWELLING - Allergy Objective: * Vitals:?Ht: 65 in, Wt:165lbs , BMI:27.45Index, BP:116/82mm Hg, Temp:98.0F. * Examination: ???General Examination: ?GENERAL APPEARANCE:?in no acute distress, well developed, well nourished, telephone repairer present in room.?HEAD:?normocephalic, atraumatic.?NECK/THYROID:?neck supple, full range of motion, thyroid normal.?LYMPH NODES:?no axillary or supraclavicular adenopathy.?SKIN:? normal, good turgor, no rashes, no suspicious lesions.?BREASTS:? normal, no dimpling, no discharge, no drainage, no masses palpable bilaterally, nontender.?ABDOMEN:? soft, non-tender, non distended without masses or hepatosplenomegay.?RECTAL:?deferred at patient request (has a GI doctor).?BACK:? no costovertebral angle tenderness.?FEMALE GENITOURINARY:?Vulva without lesions or masses, vagina pink without abnormal discharge, lesions or masses, cervix appears normal and is not tender to palpation, uterus is normal size, mobile, nontender and anteverted, ovaries are not palpable.?NEUROLOGIC:? alert and oriented, gait normal.?PSYCH:? alert, oriented, cognitive function intact, cooperative with exam, good eye contact, mood/affect full range, speech clear.? Assessment: * Assessment: 1.?Encounter for gynecologic al examination (general) (routine) without abnormal findings - Z01.419 (Primary)???2.?Encounter for screening mammogram for malignant neoplasm of breast - Z12.31???3.?Postmenopausal atrophic vaginitis - N95.2??? Plan: * Treatment: 2.?Encounter for screening m ammogram for malignant neoplasm of breast?Imaging: MM Digital Screening Mammogram 3D * Procedure Codes:? * Preventive Medicine:?Vaginal Estrogens: Creams - Premarin and Estrace Tablet - Yuvafem Suppository - Imvexxy Ring - Estring ~~~~~~~~~~~~~ STRENGTH TRAINING ~~~~~~~~~~~~~ Anyone, at any fitness level, can and should add strength training to their routine. Strength training is an important part of an overall fitness program, mainly because lean muscle mass naturally diminishes with age. You'll increase the percentage of fat in your body if you don't do anything to replace the lean muscle you lose over time. Strength training can help you preserve and enhance your muscle mass (at any age!), develop strong bones and reduce the risk of osteoporosis, manage or lose weight and increase your metabolism to help you burn more calories. It will also improve your ability to do everyday activities and reduce symptoms of chronic conditions such as arthritis, back pain, obesity, heart disease and diabetes. Some research suggests that regular strength training may help improve thinking and learning skills. Don't be intimidated. You can strength train at home or in the gym, and you have plenty of options. You can rely on your body weight and do many exercises with little or no equipment, like pushups, pullups, planks and leg squats. Or you can go pro and choose to go with resistance tubing (a lightweight tubing that provides resistance when stretched), free weights like barbells and dumbbells, or weight machines at the gym. ~~~~~~~~~~~~~~~~~~~~~~~~~~~~~~~~~~~~~~~~~~~ SARCOPENIA AND THE IMPORTANCE OF STRENGTH TRAINING EXERCISE ~~~~~~~~~~~~~~~~~~~~~~~~~~~~~~~~~~~~~~~~~~~ What is sarcopenia? ~~~~~~~~~~~~ Sarcopenia refers to the process of losing skeletal muscle mass and strength. 'Sarco' is the Fijian word referring to flesh, and 'penia' means a reduction in amount. Thus, the word describes a progressive weakening of the body caused by a 'change in body compensation in favor of fat and at the expense of muscle.' Everyone, beginning around age 25, starts to lose muscle mass, though the actual symptoms of this loss do not usually begin showing up until around the age of 40 or so. The process begins really picking up speed after the age of 65. In fact, around the age of 40, most women will lose almost a half-pound of muscle every year and replace it with fat. The result of this gradual loss of muscle is an insidious weakening of the body, loss of balance, loss of confidence upon walking, and a reduced ability to recover from near falls. As we lose strength, we become more inactive. This makes sense, because if we have less muscle, it takes much more effort to move, and we fatigue more easily. But also, with loss of strength comes loss of balance and stability. The fear of falling keeps many people sedentary, and a sedentary lifestyle opens the door for chronic illness. ~~~~~~~~~~~~~~ Take back your muscle ~~~~~~~~~~~~~~ And now for great news: you can delay sarcopenia and even reverse it. How? By lifting weights. Even though you cannot grow new muscles cells to replace the ones you have already lost, you can develop the ones that you have left. In fact, you can become stronger than you ever have in your life by simply beginning a strength training program. No matter how old you are, it is not too late to start. Even patients in nursing homes have seen transformation. After strength training, bedridden patients were able to begin walking with walkers, walker-dependent patients graduated to canes, and so on. And no matter how young you are, it is not too early to start! By starting early, you can significantly delay the effects of sarcopenia. As you begin lifting weights, you will notice a transformation in your body. You will have more energy, you will perform everyday tasks with noticeably more ease and your clothes will begin sagging on you, because you will be building muscle and burning up the fat deposits. You will have greater balance and more confidence. And perhaps best of all is the insurance policy you pay premiums on every time you choose to lift, because you are laying a strong, solid foundation for your later years. You are laying up health, independence and the ability to live well, not just long. DON'T LET ANOTHER DAY GO BY THAT YOU ARE LOSING MUSCLE. Take it back, and get ready to feel better than you ever have! . * Follow Up:?1 Year (Reason: Y early Certified Hyperbaric Technologist Exam) * Images: Billing Information: * Visit Code:? 09932 Preventive Care New Pt. Age 40-64. * Procedure Codes:? 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 She is new to this practice, having received previous supervisor finishing department care with Dr Lim. She has been in state of good health since her last exam. She has the following concerns: vaginal dryness She has received the Janes & Janes Covid-19 vaccine and 4 Moderna boosters. Relationship status: single. She is sexually active. Sexual partner(s): male. She does not wish to have STI testing. She does report vaginal dryness - lubricant is not sufficient. She does not have hot flashes/night sweats. The patient has never had an abnormal pap smear. Her most recent pap smear was 09/25/22 - NIL. Last tested for HPV on 09/20/20 - NIL, neg HR HPV. Next due for cotesting in 2025. She has not been diagnosed with breast cancer. She does have a family history of breast cancer - [facility] [place]. Her last mammogram was 11/07/22. She does not yet have her mammogram scheduled. She does not have a family history of colon cancer. She a has had a colonoscopy. The last colonoscopy was 2017 - follow up in 10 yrs. The patient does exercise. She exercises x 7 days/week by walking. She does not strength train. Examination Category Sub-Category Detail Notes Category Not es General Examination GENERAL APPEARANCE: in no ac [place] distress, well developed, well nourished, telephone repairer present in room HEAD: normocephalic, atrau matic NECK/THYROID: neck supple, full ra nge of motion, thyroid normal ABDOMEN: soft, non-tender, no n distended without masses or hepatosplenomegay NEUROLOGIC: alert and oriented, gait normal SKIN: normal, good turgor, no rashes, no suspicious lesions BACK: no costovertebral an gle tenderness BREASTS: normal, no dimpling, no discharge, no drainage, no masses palpable bilaterally, nontender LYMPH NODES: no axillary or supra clavicular adenopathy RECTAL: deferred at patient request (has a GI doctor) PSYCH: alert, oriented, cog nitive function intact, cooperative with exam, good eye contact, mood/affect full range, speech clear FEMALE GENITOURINARY: Vulva without lesi ons or masses, vagina pink without abnormal discharge, lesions or masses, cervix appears normal and is not tender to palpation, uterus is normal size, mobile, nontender and anteverted, ovaries are not palpable
[2024-04-21 17:22] LABS: Erythrocyte Sedimentation Rate 5 MM/HR (0-20)
[2024-04-22 08:20] LABS: HBS Num1 55.77 mIU/mL (0-7.99); HBc Num1 0.06 S/CO (0.00-0.79); HBsAGNum1 0.44 S/CO (0.00-0.99); Hepatitis B Core Antibody Nonreactive (Nonreactive); Hepatitis B Surface Antigen Negative (Negative); ~HepC Num1 0.07 S/CO (0.00-0.79); ~Hepatitis B Surface Antibody REACTIVE (Nonreactive); ~Hepatitis C Antibody Nonreactive (Nonreactive)
[2024-04-23 14:32] LABS: Cyclic Citrullinated Peptide <16 UNITS
== END 2024-04-21 14:41 | disposition home or self-care (01) ==
LOC: HO.HMGCLDS 14:40
PROVIDERS: PCP Physician Assistant Surgical; Visit Provider Internal Medicine Rheumatology
DX: M79.641 Pain in right hand (principal)
CPT/HCPCS: 36415; 85652; 86140; 86200; 86431; 86704; 86706; 86803; 87340

== ENCOUNTER 2024-04-27 13:59 | Outpatient (AMB) | payer OTHER, SELFPAY ==
--- NOTE | 2024-04-27 14:06 | A.OFFVIS_ITS ---
Vital Signs 04/27/24 14:08 Height 5 ft 6.5 in Weight 174 lb 8 oz BMI 27.7 BP 122/66 Blood Pressure Location Lt brachial Position Sitting Pulse 63 Pulse Source Pulse Oximeter Pulse Oximetry (%) 99 Oxygen Delivery Method Room Air Intake Visit Reasons: discuss labs and next steps Intake Note: Patient presents for follow up on right hand pain, labs and x-ray. She was last seen on the office by DR. Toro on 03/11/2024. Allergies Sulfa (Sulfonamide Antibiotics) Allergy (Intermediate, Verified 04/27/24 14:12) Itching acetaminophen [From Percocet] Allergy (Mild, Verified 04/27/24 14:12) rash, itchy oxycodone [From Percocet] Allergy (Mild, Verified 04/27/24 14:12) rash, itchy hydrocet Allergy (Mild, Uncoded 04/27/24 14:12) rash, itchy HPI HPI discuss labs and next steps: Details: She continues to have pain right 2nd joint. She had an episode of joint swelling involving right 2nd PIP 2 months ago. 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 Swelling and pain lasted a week. She use Tylenol as needed for pain. [facility] Medical History (Updated 04/27/24 @ 14:44 by Bipin Toor MD) Varicose veins of both lower extremities Osteoarthritis Surgical History (Updated 03/11/24 @ 13:59 by Kinsey Cantrell CMA) H/O removal of cyst S/P foot surgery Family History (Updated 03/11/24 @ 14:00 by Kinsey Cantrell CMA) Father Bladder cancer Melanoma Mother Afib Social History (Updated 03/11/24 @ 14:01 by Kinsey Cantrell CMA) Alcohol intake: current Alcohol intake frequency: holidays/special occasions only Alcohol type: wine Patient Tobacco Use Status: Never used Tobacco Review of Systems Const All systems reviewed & are unremarkable except as noted in HPI and below Physical Exam Vital Signs: Last Vital Signs Pulse 63 04/27/24 14:08 BP 122/66 04/27/24 14:08 Pulse Ox 99 04/27/24 14:08 Oxygen Delivery Method Room Air 04/27/24 14:08 BMI result Body Mass Index 27.7 Const Other: General: Comfortable CVS: RRR Respiratory: clear to auscultation bilaterally. Good respiratory effort Skin: No lesions seen MSK: Tender nodule less than 0.5 mm diameter palpated on proximal phalanx distal to base of 2nd metacarpal right hand. No synovitis of any joints. Heberden's nodes present. Subluxation left 2nd DIPJ. She is able to make a fist with her hands. Good range of motion of upper extremities and lower extremities. Right 1st MTP tender. Hallux valgus right foot present. Paste planus bilateral present. Assessment & Plan Assessment & Plan (1) Hand pain, right: Comment: Acute onset painful nodule of unclear etiology localized to 2nd right proximal phalanx near base of 2nd metacarpal. X-ray did not reveal pathology contributing to pain at the right 2nd MCP or proximal phalanx of right 2nd finger. However, there is an erosion of right 2nd PIP. Inflammatory arthritis workup with inflammatory markers, rheumatoid factor anti CCP antibody were negative. Code(s): M79.641 - Pain in right hand Category: Medical Plan: MRI right hand with and without contrast to evaluate etiology of painful nodule right 2nd proximal phalanx ? Tendon pathology or bone pathology and for roopa luation of subclinical inflammatory arthritis as there right 2nd PIP erosion found on x-ray. Return to clinic in 1 month (2) Erosion of bone: Code(s): M85.80 - Other specified disorders of bone density and structure, unspecified site Category: Medical Plan: See above Orders: Orders MR hand RT wo/w con Today M79.641 - Pain in right hand, M85.80 - Other specified disorders of bone density and structure, unspecified site XR hand LT min 3V Today M19.041 - Primary osteoarthritis, right hand, M19.042 - Primary osteoarthritis, left hand, M85.80 - Other specified disorders of bone density and structure, unspecified site Coding Level of Care Code Est Pt Level 3 (35628) Complex EM visit Add On G2211 Diagnoses Hand pain, right M79.641 Erosion of bone M85.80
[2024-04-27 14:08] VITALS: BP 122/66; PULSE 63; O2SAT 99; BMI 27.7
--- OUTSIDE RECORDS SUMMARY | 2024-04-27 14:55 | XMS_ITS ---
Author Organization [facility] Address [address] [facility] [place] [address] Care Team Providers Care Spring Repairer Helper Hand Name Role Phone Shannon Valdemar Primary Care Provider Unavailabl e Black, Yessica Unavailable [phone] Allergies Allergen (clinical drug ingredient) Drug/Non Drug [...] 025 Encounters Encounter Location Date Provider Diagnosis [facility] [address] [place] [address] 04/14/2024 Yessica Mack Pain in right toe(s) [...] Name:Yessica Mack , 07/13/2024 03:00:00 PM, [address] [facility], [place], [address], Progress Notes * Migue MARTIN:1965 (58 yo F)Acc No.[id number]:04/14/2024 Progress Notes Patient:?Leeann MARTIN Provider:?Yessica Mack DPM :1965???Age:58 Y???Sex:Female D ate:04/14/2024 Address: [address], [facility] Pcp:Valdemar Shannon Subjective: * Chief Complaints: * [...] gardening/yard work, softball. ?Marital status: . ?Occupation: [employer]. ???Drug/Alcohol:?AUDIT-C (Standard)?Did you have a drink containing [...] use of a nail nipper and/or dremel-type spice grinder, to a more viable healthy nail plate or bed tissue. Silver nitrate used for any petechial bleeding as necessary.? * Follow Up:?2-3 Months * Images: * Sign off status: Completed true * Provider:?Yessica Mack DPM Date:?2024 Generated for Curt cao/Jorge/Melissa on:?04/27/2024 02:55 PM EST History and Physical Notes * [...]
--- OUTSIDE RECORDS SUMMARY | 2024-04-27 14:55 | XMS_ITS ---
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 SPECIALIST Physical Medications Medication SIG (Take, Route, Fr [...] Status Risk Notes Problem Postmenopausal atrophic vaginitis (23273144) Postmenopausal atrophic vaginitis (N95.2) Active confirmed Problem Hyperlipidemia (07827365) Hyperlipidemia, unspecified (E78.5) Active confirmed Problem Refractory migraine with aura (069671178) Migraine with aura, intractable, without status migrainosus (G43.119) Active confirmed Problem 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 Vital Signs Temperature 98.0 degrees Fahrenheit 11/03/19 24 Blood pressure systolic 116 mm Hg 11/03/19 24 Blood pressure diastolic 82 mm Hg 024 Height 65 in 11/03/2023 Weight 165 lbs 11/03/2023 BMI 27.45 kg/m2 11/03/2023 Encounters Encounter Location Date Provider Diagnosis [address] [place] [address] 11/03/2023 JUSTIN RIVERAS Encounter for gynecological examination [...] Follow Up: 1 Year, Reason: Y early Leather Goods Maker Exam Provider Name:JUSTIN Vela MIGUEL Colon, 11/04/2024 08:30:00 AM, [address] [facility], [address], [place], [address], Progress Notes * ILAN MARTINADOB:1965 (58 yo F)Acc No.[id number]:11/03/2023 Progress Note Patient:?LEEANN MARTIN Provider:?JUSTIN CASTRO MD :1965???Age:58 Y???Sex:Female D ate:11/03/2023 Address:[address] [place], [place] [id number] Pcp:GINA BARON Subjective: * Chief Complaints: * ???Annual WAGE AND SALARY SPECIALIST Physical * HPI: ???Constitutional:? Leeann is a 58yo who is menopausal who presents for her yearly nurse orthopaedic exam. She is new to this practice, having received previous nurse orthopaedic care with Dr Lim. She has been [...] a family history of breast cancer - [facility]. Her last mammogram was 11/07/22. She does not yet have her mammogram scheduled. She does not have a family history of colon cancer. She a has had a colonoscopy. The last colonoscopy was 2017 - follow up in 10 yrs. The patient does exercise. She exercises x 7 days/week by walking. She does not strength train. * ROS:?Annual Leather Goods Maker Exam ROS:?Bowel habit changes?denies.?Bladder symptoms?denies.?Vaginal discharge, unusual?denies.?Vaginal itch or odor?denies.?weight or appetite changes?denies.?Chest pains, SOB?denies.?depression?denies.?Breast:?Denies?Breast lump.?Denies?Nipple discharge.?Hematology:?Denies?Swollen glands.?Skin:?Patient denies?changing moles.?Psychiatric:?Denies?Anxiety.? * Medical History:? * Leather Goods Maker History:?/ Para?3/2.?Sexual activity?currently sexually active, with men.?Last [...] no acute distress, well developed, well nourished, supervisor particleboard present in room.?HEAD:?normocephalic, atraumatic.?NECK/THYROID:?neck supple, full range [...] muscle mass and strength. 'Sarco' is the Micronesian word referring to flesh, and 'penia' means [...] * Follow Up:?1 Year (Reason: Y early Leather Goods Maker Exam) * Images: Billing Information: * Visit Code:? 65609 Preventive Care New Pt. Age 40-64. * Procedure Codes:? * Sign off status: Completed true * Provider:?JUSTIN CASTRO MD Date:?2023 Generated for Curt cao/Jorge/eTransmitting on:?04/27/2024 02:55 PM EST History and Physical Notes * HPI (History of Present Illness) Category Sub-Category Detail Notes Category Not es Constitutional Leeann is a 58yo who is menopausal who presents for her yearly nurse orthopaedic exam. She is new to this practice, having received previous nurse orthopaedic care with Dr Lim. She has been [...] a family history of breast cancer - [facility]. Her last mammogram was 11/07/22. She does [...] General Examination GENERAL APPEARANCE: in no ac [place] distress, well developed, well nourished, supervisor particleboard present in room HEAD: normocephalic, atrau matic [...]
--- OUTSIDE RECORDS SUMMARY | 2024-04-27 14:56 | XMS_ITS | Patient Health Record ---
Author Organization [facility] Address [address] [facility] [place] [address] Care Team Providers Care Stereoptician Name Role Phone Shiva Valdemar Primary Care Provider Unavailabl e Black, Yessica Unavailable [phone] Allergies Allergen (clinical drug ingredient) Drug/Non Drug [...] per week for 3- 4 weeks Not-Taking Terbinafine HCl 250 MG 1 tablet Orally O nce a day for 7 days days then stop for 3 weeks repeat cycle for 90 days 04/23/2024 Active Simvastatin 10 MG 2 tablets in [...] primary osteoarthritis of the ankle and/or foot (779532520) Primary osteoarthrit is, left ankle and foot (M19.072) Active confirmed Vital Signs Blood pressure diastolic 55 mm Hg 04/14/2024 Height 5ft 7in in 04/14/2024 Blood pressure systolic 136 mm Hg 04/14/2024 Weight 165 lbs 04/14/2024 BMI 25.84 kg/m2 04/14/2024 Encounters Encounter Location Date Provider Diagnosis [facility] [address] 04/14/2024 Yessica Black Pain in right toe(s) M79.674 ; Onychomycosis B35.1 and Pain in left toe(s) M79.675 [facility] [address] [place] [address] 04/14/2024 Yessica Black Assessments Encounter Date Diagnosis [...] Scan 05/07/2016 *Liver Function Test (LFT) 04/15/2024 86508-Tviipfcj Plate 06/12/2016 68346-Yacgrdfo Plate 07/03/2016 90072-Bowqbirt Plate 05/07/2016 60259-Jdpwruuv Plate 04/24/2016 43382-Ddebdbrr Plate 05/23/2016 95887-Phxthgsz Plate 05/28/2016 70674- Debride <25 sq cm 05/28/2016 53502- Debride <25 sq cm 05/23/2016 71736- Debride <25 sq cm 05/07/2016 84868- Debride <25 sq cm 07/03/2016 51339- Debride <25 sq cm 06/12/2016 29046, G9485-KUIZV/INJECT, JOINT/BURSA 1 04/21/2015 Next Appt Details Provider Name:Yessica Marinelli Frederick , 07/13/2024 03:00:00 PM, [address] [facility], [place], [address], Insurance Providers Payer Name Payer Address Payer Phone Subscriber Number Group Number Insured Name Patient Relationship to Insured Coverage Start Date Coverage End Date [facility] [address] [place] [address] [id number] Leeann Camacho Self - patient is the insured 2 Medical (General) History Medical History History ICD Code Chicken pox Gall bladder osteoarthritis CAD (Cholesterol) covid-19 Headaches/Migraines Surgical History Surgery Date(Month/Year) gall stones 1996 carpal tunnel surgery Vericose veins 2010 Gall bladder removal 1995 left foot- tendon transfer, heel shift, muscle relief 2016
--- OUTSIDE RECORDS SUMMARY | 2024-04-27 14:56 | XMS_ITS | Clinical Summary ---
Author Organization [facility] Address [address] [place] [address] Care Team Providers Care Legal Billing Clerk Name Role Phone Saurav Irvin Primary Care Provider [phone] Allergies Active Allergy Reactions Criticality Noted Date [...] age to complete this topic Care Teams Legal Billing Clerk Relationship Specialty Start Date End Date Saurav Irvin [address] [place] [address] PCP - General 11/04/22
--- OUTSIDE RECORDS SUMMARY | 2024-04-27 14:56 | XMS_ITS | Patient Health Record ---
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 Problem Hyperlipidemia (02283204) Hyperlipidemia, unspecified (E78.5) Active confirmed Problem Refractory migraine with aura (338461563) Migraine with aura, intractable, without status migrainosus (G43.119) Active confirmed Vital Signs Temperature 98.0 degrees Fahrenheit 11/03/2023 Blood pressure diastolic 82 mm Hg 11/03/2023 Height 65 in 11/03/2023 Blood pressure systolic 116 mm Hg 11/03/2023 Weight 165 lbs 11/03/2023 BMI 27.45 kg/m2 11/03/2023 Encounters Encounter Location Date Provider Diagnosis [facility] [address] [place] [address] 11/03/2023 JUSTINIsis PIERCECASTRO Encounter for gynecological examination [...] Name:JUSTIN RIVERA Darlene, 11/04/2024 08:30:00 AM, [address], [address], [place], [address], Insurance Providers Payer Name Payer Address Payer Phone Subscriber Number Group Number Insured Name Patient Relationship to Insured Coverage Start Date Coverage End Date [facility] [address] [facility] [place] [place] [address] [phone] [id number] DOMI MARTIN Self - patient is [...]
--- OUTSIDE RECORDS SUMMARY | 2024-04-27 14:56 | XMS_ITS ---
Author Organization [facility] Address [address] [place] [address] Care Team Providers Care Plan Rep Name Role Phone Valdemar Shannon Primary Care Provider Yessica Parker [phone] REASON FOR VISIT [facility] liver function test results Medications Medication SIG (Take, Route, Fr equency, Duration) Notes Start Date End Date Status Terbinafine HCl 250 MG 1 tablet Orally O nce a day for 7 days days then stop for 3 weeks repeat cycle for 90 days 04/23/2024 Active Encounters Encounter Location Date Provider Diagnosis [facility] [address] [place] [address] 04/14/2024 Yessica Frederick Plan Of Treatment Medication Medication Name Sig Start Date Stop Date Notes Terbinafine HCl 250 MG 1 tablet Orally O nce a day for 7 days days then stop for 3 weeks repeat cycle for 90 days 04/23/2024 Next Appt Details Provider Name:Yessica Marinelli Frederick , 07/13/2024 03:00:00 PM, [address] [facility], [place], [address], Progress Notes * Savage MARTINNeidaB:1965 (58 yo F)Acc No.[id number]:04/14/2024 Patient:?Leeann MARTIN :1965???Age:58 Y???Sex:Female Address:[address] [place], [address] * Refills? Start Terbinafine HCl Tablet, 250 MG, Orally, 21, 1 tablet, Once a day for 7 days days then stop for 3 weeks repeat cycle, 90 days, Refills=3 * true * Date:? Generated for Curt cao/Jorge/Karloitting on:?04/27/2024 02:55 PM EST
== END 2024-04-27 14:39 | disposition home or self-care (01) ==
PROVIDERS: PCP Physician Assistant Surgical; Visit Provider Internal Medicine Rheumatology
DX: M79.641 Pain in right hand (principal); M85.80 Other specified disorders of bone density and structure, unspecified site
CPT/HCPCS: 99213

== ENCOUNTER 2024-04-30 14:14 | Outpatient (REF) | payer OTHER, SELFPAY ==
--- NOTE | ~2024-04-30 | XR_ITS ---
EXAMINATION: XR HAND 3 OR MORE VIEWS LEFT HISTORY: M85.80 - erosion PIP joint of the index finger of the right hand. Evaluate for inflammatory arthritis. COMPARISON: There are no prior studies available for comparison. FINDINGS: Three views of the left hand are submitted. Osseous mineralization is normal. There is no fracture or dislocation. There is flexion deformity of the DIP joint of the middle finger. There are adjacent soft tissue calcifications. Findings may represent the sequela of old trauma. The joint spaces are preserved. There are no osseous erosions. XR/XR hand LT min 3V IMPRESSION: No significant joint space narrowing. No osseous erosions are identified. Electronically signed by: Daniel Grijalva MD 04/30/2024 03:30 PM EST
--- OUTSIDE RECORDS SUMMARY | 2024-04-30 14:16 | XMS_ITS | Clinical Summary ---
Author Organization [facility] Address [address] [place] [address] Care Team Providers Care Records Management Manager Name Role Phone Saurav Irvin Primary Care Provider [phone] Allergies Active Allergy Reactions Criticality Noted Date [...] age to complete this topic Care Teams Records Management Manager Relationship Specialty Start Date End Date Saurav Irvin [address] [place] [address] PCP - General 11/04/22
== END 2024-04-30 14:15 | disposition home or self-care (01) ==
LOC: HO.HMGCX 14:14
PROVIDERS: PCP Physician Assistant Surgical; Visit Provider Internal Medicine Rheumatology
DX: M85.80 Other specified disorders of bone density and structure, unspecified site (principal); M19.041 Primary osteoarthritis, right hand; M19.042 Primary osteoarthritis, left hand
CPT/HCPCS: 73130

== ENCOUNTER → 2024-04-30 14:18 | Outpatient (BNV) | payer OTHER, SELFPAY | PROVIDERS: PCP Physician Assistant Surgical; Visit Provider Radiology Diagnostic Radiology | DX: M85.80 Other specified disorders of bone density and structure, unspecified site (principal) | CPT/HCPCS: 73130 ==

== ENCOUNTER 2024-05-09 15:46 | Outpatient (REF) | payer OTHER, SELFPAY | END 2024-05-09 15:47 | disposition home or self-care (01) | LOC: HO.MRI 15:46 | PROVIDERS: PCP Physician Assistant Surgical; Visit Provider Internal Medicine Rheumatology | DX: M79.641 Pain in right hand (principal); M85.80 Other specified disorders of bone density and structure, unspecified site | CPT/HCPCS: 73218 ==

== ENCOUNTER → 2024-05-09 15:56 | Outpatient (BNV) | payer OTHER, SELFPAY | PROVIDERS: PCP Physician Assistant Surgical; Visit Provider Radiology Diagnostic Radiology | DX: M67.833 Other specified disorders of tendon, right wrist (principal); R60.0 Localized edema | CPT/HCPCS: 73218 ==

== ENCOUNTER 2024-07-02 14:44 | Outpatient (RCR) | payer OTHER, SELFPAY | END 2024-07-16 15:07 | disposition home or self-care (01) | LOC: HO.OT 14:44 | PROVIDERS: PCP Physician Assistant Surgical; Visit Provider Internal Medicine Rheumatology | DX: R29.898 Other symptoms and signs involving the musculoskeletal system (principal); M19.041 Primary osteoarthritis, right hand; M19.042 Primary osteoarthritis, left hand | CPT/HCPCS: 97033; 97035; 97110; 97140; 97165; 97535 ==

== ENCOUNTER 2024-08-17 14:23 | Outpatient (AMB) | payer OTHER, SELFPAY ==
--- NOTE | 2024-08-17 14:24 | A.OFFVIS_ITS ---
Vital Signs 08/17/24 14:25 Height 5 ft 6.5 in Weight 165 lb 5.547 oz BMI 26.3 BP 110/80 Blood Pressure Location Rt brachial Position Sitting Pulse 82 Pulse Source Pulse Oximeter Pulse Oximetry (%) 98 Oxygen Delivery Method Room Air Intake Visit Reasons: Follow Up 3mo Intake Note: Patient presents for follow up on right hand pain. Allergies Sulfa (Sulfonamide Antibiotics) Allergy (Intermediate, Verified 08/17/24 14:28) Itching acetaminophen [From Percocet] Allergy (Mild, Verified 08/17/24 14:28) rash, itchy oxycodone [From Percocet] Allergy (Mild, Verified 08/17/24 14:28) rash, itchy hydrocet Allergy (Mild, Uncoded 04/27/24 14:12) rash, itchy HPI HPI Follow Up 3mo: Details: She completed visit occupational therapy. Initially was helpful but then it caused increased pain. At this time she is experiencing pain in her bilateral wrists. She has a brace that she wears at night and tries to wear during the day when she is cooking and not using water. She has pain distal left 3rd finger. Cyst on right hand has resolved. She continues to use Celebrex 200 mg twice a day PFSH Medical History Varicose veins of both lower extremities Osteoarthritis Surgical History H/O removal of cyst S/P foot surgery Family History Father Bladder cancer Melanoma Mother Afib Social History Alcohol intake: current Alcohol intake frequency: holidays/special occasions only Alcohol type: wine Patient Tobacco Use Status: Never used Tobacco Physical Exam Vital Signs: Last Vital Signs Pulse 82 08/17/24 14:25 BP 110/80 08/17/24 14:25 Pulse Ox 98 08/17/24 14:25 Oxygen Delivery Method Room Air 08/17/24 14:25 BMI result Body Mass Index 26.3 Const Other: General: Comfortable Skin: No lesions seen MSK: Tender to palpate 1st extensor compartment. Positive Talia's test. No synovitis of any joints. No nodule present. Heberden's nodes present. Subluxation left 2nd DIPJ. Tender left 3rd DIPJ. She is able to make a fist with her hands. Normal range of motion of upper extremities. Assessment & Plan Assessment & Plan (1) Osteoarthritis of hands, bilateral: Comment: Pain is controlled on Celebrex. Hx of kidney insufficency. X-ray right hand February 2024 reveals a punched-out appearing a marginal periarticular erosion 2nd digit ulnar aspect of the PIP joint. There is mild soft tissue swelling of this region. MRI with and without contrast reveals subcortical cyst of the base of the middle phalanx of the index finger is likely a carpal cysts not erosion. Code(s): M19.041 - Primary osteoarthritis, right hand; M19.042 - Primary osteoarthritis, left hand Category: Medical Qualifiers: Osteoarthritis type: primary Qualified Code(s): M19.041 - Primary osteoarthritis, right hand; M19.042 - Primary osteoarthritis, left hand Plan: Labs ordered for drug monitoring on chronic NSAID Continue Celebrex 200 mg twice a day Return to clinic in 6 months (2) Hand pain, right: Comment: Acute onset painful nodule of unclear etiology localized to 2nd right proximal phalanx near base of 2nd metacarpal. MRI with and without contrast reveals cyst. Resolved. Code(s): M79.641 - Pain in right hand Category: Medical Plan: Monitor clinically (3) De Quervain's tenosynovitis, right: Comment: Discussed conservative management. Failed occupational therapy and celecoxib. We discuss next steps with cortisone injection. 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 I recommend that she needs 24-48 hours of light duties after a cortisone injection to reduce risk of tendon rupture due to the proximity of the injection to 8 tendon and for maximum benefit. Patient will further discuss getting cortisone injection with hand surgeon at a time where she will not have a heavy load at work. Code(s): M65.4 - Radial styloid tenosynovitis [de Quervain] Category: Medical Plan: Right wrist brace prescribed Information we will be mailed to patient She will be seeing hand surgeon in 2 weeks. She will be discussing cortisone injection with hand surgeon. Return to clinic in 6 months Orders: Orders Creatinine Today Z79.60 - supervisor intermediates (current) use of unspecified immunomodulators and immunosuppressants Alanine Aminotransferase Today Z79.60 - care home (current) use of unspecified immunomodulators and immunosuppressants Aspartate Amino Transferase Today Z79.60 - care home (current) use of unspecified immunomodulators and immunosuppressants Medications: New arm brace (Wrist Brace) Short thumb spica splint Dx: De quervain's tenosynovitis 1 ea 0RF arm brace (Wrist Brace) Right thumb spica splint Dx: de quervain's tenosynovitis 1 ea 0RF Refilled celecoxib 200 mg PO BID 180 caps 1RF Coding Level of Care Code Est Pt Level 4 (49858) Complex EM visit Add On G2211 Diagnoses Primary osteoarthritis of both hands M19.041; M19.042 Osteoarthritis type: primary Hand pain, right M79.641 De Quervain's tenosynovitis, right M65.4
[2024-08-17 14:25] VITALS: BP 110/80; PULSE 82; O2SAT 98; BMI 26.3
--- OUTSIDE RECORDS SUMMARY | 2024-08-17 15:47 | XMS_ITS ---
Author Organization [facility] Address [address] [facility] [place] [address] Care Team Providers Care Virtual Assistant Name Role Phone Valdemar Shannon Primary Care Provider UnavailYessica Arthur [phone] REASON FOR VISIT RS 07/13 appt to 08/31 Encounters Encounter Location Date Provider Diagnosis [facility] [address] [place] [address] 06/21/2024 Yessica Mack Plan Of Treatment Next Appt Details Provider Name:Yessica Mack , 08/31/2024 03:00:00 PM, [address] [place], [address], Progress Notes * [place] MARTINaDOB:1965 (58 yo F)Acc No.[id number]:06/21/2024 Patient:?Leeann MARTIN :1965???Age:58 Y???Sex:Female Address:[address] [place], [address] * true * Date:? Generated for Aidani kiley/Jorge/eTransmitting on:?08/17/2024 03:47 PM EDT
--- OUTSIDE RECORDS SUMMARY | 2024-08-17 15:47 | XMS_ITS ---
Author Organization [facility] Address [address] [place] [address] Care Team Providers Care Methods Analyst Name Role Phone Valdemar Shannon Primary Care Provider Yessica Parker [phone] REASON FOR VISIT [facility] liver function test results Medications Medication SIG (Take, Route, Fr equency, Duration) Notes Start Date End Date Status Terbinafine HCl 250 MG 1 tablet Orally O nce a day for 7 days days then stop for 3 weeks repeat cycle for 90 days 04/23/2024 Active Encounters Encounter Location Date Provider Diagnosis [facility] [address] [place] [address] 04/14/2024 Yessica Mack Plan Of Treatment Medication Medication Name Sig Start Date Stop Date Notes Terbinafine HCl 250 MG 1 tablet Orally O nce a day for 7 days days then stop for 3 weeks repeat cycle for 90 days 04/23/2024 Next Appt Details Provider Name:Yessica A Frederick , 08/31/2024 03:00:00 PM, [address] [facility], [place], [address], Progress Notes * [place] MARTINNeidaB:1965 (58 yo F)Acc No.[id number]:04/14/2024 Patient:?Leeann MARTIN :1965???Age:58 Y???Sex:Female Address:[address] [place], [address] * Refills? Start Terbinafine HCl Tablet, 250 MG, Orally, 21, 1 tablet, Once a day for 7 days days then stop for 3 weeks repeat cycle, 90 days, Refills=3 * true * Date:? Generated for Curt cao/Jorge/Karloitting on:?08/17/2024 03:47 PM EDT
--- OUTSIDE RECORDS SUMMARY | 2024-08-17 15:48 | XMS_ITS ---
Author Organization [facility] Address [address] [facility] [place] [address] Care Team Providers Care Social Scientist Name Role Phone Valdemar Shannon Primary Care Provider Yessica Parker [phone] Encounters Encounter Location Date Provider Diagnosis [address] [place] [address] 07/13/2024 Yessica Mack Plan Of Treatment Next Appt Details Provider Name:Yessica Mack , 08/31/2024 03:00:00 PM, [address] [facility], [address], Progress Notes * [place] MARTINaDOB:1965 (58 yo F)Acc No.[id number]:07/13/2024 Progress Note Patient:?Leeann MARTIN Provider:?Yessica Mack DPM :1965???Age:58 Y???Sex:Female D ate:07/13/2024 Address:[address] [place] Pcp:Valdemar Shannon Subjective: * Chief Complaints: * ??? * Medical History:? Objective: * Vitals:? Assessment: Plan: * Treatment: * Images: * The named appointment provid er may or may not be the originator of this progress note, and it is not deemed complete until electronically signed by the appointment provider. Sign off status: Pending * Provider:?Yessica Mack DPM Date:?2024 Generated for Curt cao/Jorge/Melissa on:?08/17/2024 03:48 PM EDT
--- OUTSIDE RECORDS SUMMARY | 2024-08-17 15:48 | XMS_ITS | Patient Health Record ---
Author Organization [facility] Address [address] [facility] [place] [address] Care Team Providers Care Scalehouse Attendant Name Role Phone Shiva Valdemar Primary Care Provider Unavailabl e Black, Yessica Unavailable [phone] Allergies Allergen (clinical drug ingredient) Drug/Non Drug [...] primary osteoarthritis of the ankle and/or foot (731565495) Primary osteoarthrit is, left ankle and foot (M19.072) Active confirmed Vital Signs Blood pressure diastolic 55 mm Hg 04/14/2024 Height 5ft 7in in 04/14/2024 Blood pressure systolic 136 mm Hg 04/14/2024 Weight 165 lbs 04/14/2024 BMI 25.84 kg/m2 04/14/2024 Encounters Encounter [facility] [address] [facility]/14/[facility]24 Yessica Black Pain in right toe(s) M79.674 ; Onychomycosis B35.1 and Pain in left toe(s) M79.675 [facility] [address] [place] [address] 04/14/2024 [facility] [address] 06/21/2024 Yessica Black Assessments Encounter Date Diagnosis (ICD Code) Assessment Notes Treatment Notes Treatment Clinical Notes Section Notes 04/14/2024 Pain in right toe(s) (ICD-10 - M79.674) 04/14/2024 Onychomycosis (ICD-10 - B35.1) 04/14/2024 Pain in left toe(s) (ICD-10 - M79.675) Plan Of Treatment Pending Test Test Name Order Date MRI : Foot, left 05/23/2016 Tc99 3 phase Bone Scan 05/07/2016 *Liver Function Test (LFT) 04/15/2024 46949-Juubbbyh Plate 06/12/2016 84397-Idcuqxwz Plate 07/03/2016 73943-Ckxlhbgx Plate 05/07/2016 61885-Vhcwfwww Plate 04/24/2016 11409-Uzmllhvo Plate 05/23/2016 73756-Fyrgitul Plate 05/28/2016 85652- Debride <25 sq cm 05/28/2016 24382- Debride <25 sq cm 05/23/2016 65933- Debride <25 sq cm 05/07/2016 17571- Debride <25 sq cm 07/03/2016 27147- Debride <25 sq cm 06/12/2016 40990, M5352-JREJM/INJECT, JOINT/BURSA 1 04/21/2015 Next Appt Details Provider Name:Yessica Marinelli Frederick , 08/31/2024 03:00:00 PM, [address] [facility], [place], [address], Insurance Providers Payer Name Payer Address Payer Phone Subscriber Number Group Number Insured Name Patient Relationship to Insured Coverage Start Date Coverage End Date [facility] [address] [place] [address] [id number] Leeann Camacho Self - patient is the insured 2 Medical (General) History Medical History History ICD Code Chicken pox Gall bladder osteoarthritis CAD (Cholesterol) covid-19 Headaches/Migraines Surgical History Surgery Date(Month/Year) gall stones 1996 carpal tunnel surgery Vericose veins 2011 Gall bladder removal 1995 left foot- tendon transfer, heel shift, muscle relief 2016
--- OUTSIDE RECORDS SUMMARY | 2024-08-17 15:48 | XMS_ITS | Patient Health Record ---
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 Problem Hyperlipidemia (84171463) Hyperlipidemia, unspecified (E78.5) Active confirmed Problem Refractory migraine with aura (216049375) Migraine with aura, intractable, without status migrainosus (G43.119) Active confirmed Vital Signs Temperature 98.0 degrees Fahrenheit 11/03/2023 Blood pressure diastolic 82 mm Hg 11/03/2023 Height 65 in 11/03/2023 Blood pressure systolic 116 mm Hg 11/03/2023 Weight 165 lbs 11/03/2023 BMI 27.45 kg/m2 11/03/2023 Encounters Encounter Location Date Provider Diagnosis [facility] [address] [place] [address] 11/03/2023 JUSTINIsis PIERCECASTRO Encounter for gynecological examination [...] Appt Details Provider Name:JUSTIN RIVERA Darlene, 11/04/2024 08:40:00 AM, [address], [address], [place], [address], Insurance Providers Payer Name Payer Address Payer Phone Subscriber Number Group Number Insured Name Patient Relationship to Insured Coverage Start Date Coverage End Date [facility] [address] [address] [facility] [place], [place] [address] [phone] [id number] DOMI MARTIN Self - patient is [...]
--- OUTSIDE RECORDS SUMMARY | 2024-08-17 15:48 | XMS_ITS | Clinical Summary ---
Author Organization [facility] Address [address] [place] [address] Care Team Providers Care Delivery Crew Member Name Role Phone Saurav Irvin Primary Care Provider [phone] Allergies Active Allergy Reactions Criticality Noted Date [...] age to complete this topic Care Teams Delivery Crew Member Relationship Specialty Start Date End Date Saurav Irvin [address] [place] [id number] PCP - General 11/04/22
== END 2024-08-17 15:16 | disposition home or self-care (01) ==
LOC: HO.RHES 14:23
PROVIDERS: PCP Physician Assistant Surgical; Visit Provider Internal Medicine Rheumatology
DX: M19.041 Primary osteoarthritis, right hand (principal); M19.042 Primary osteoarthritis, left hand; M79.641 Pain in right hand; M65.4 Radial styloid tenosynovitis [de Quervain]
CPT/HCPCS: 99214

== ENCOUNTER 2024-08-17 14:23 | Outpatient (REF) | payer OTHER, SELFPAY ==
--- OUTSIDE RECORDS SUMMARY | 2024-08-17 16:27 | XMS_ITS | Clinical Summary ---
Author Organization [facility] Address [address] [place] [address] Care Team Providers Care Corn Popper Name Role Phone Saurav Irvin Primary Care Provider [phone] Allergies Active Allergy Reactions Criticality Noted Date [...] age to complete this topic Care Teams Corn Popper Relationship Specialty Start Date End Date Saurav Irvin [address] [place] [address] PCP - General 11/04/22
[2024-08-17 18:44] LABS: Alanine Aminotransferase 29 U/L (0-31); Aspartate Amino Transferase 43 U/L (5-31); Estimated Glomerular Filt Rate > 60
== END 2024-08-17 14:24 | disposition home or self-care (01) ==
LOC: HO.HKASLDS 14:23
PROVIDERS: PCP Physician Assistant Surgical; Visit Provider Internal Medicine Rheumatology
DX: Z13.818 Encounter for screening for other digestive system disorders (principal); Z79.60 Long term (current) use of unspecified immunomodulators and immunosuppressants
CPT/HCPCS: 36415; 82565; 84450; 84460

== ENCOUNTER 2024-08-30 15:30 | Outpatient (AMB) | payer OTHER, SELFPAY ==
[2024-08-30 15:37] VITALS: BMI 26.6
--- NOTE | 2024-08-30 15:37 | A.OFFVIS_ITS ---
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 Patient states she has completed 6 weeks of occupational therapy however this exacerbated her symptoms. Denies injury. States she has arthritis in both of her hands and was seen by her arthritis provider who thinks this may be a tendon problem. Her discomfort is located at the radial side of hand that travels down to her elbow. Occasional numbness and tingling in her fingers. MRI of right hand was done. 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 Patient states she has completed 6 weeks of occupational therapy however this exacerbated her symptoms. Denies injury. States she has arthritis in both of her hands and was seen by her arthritis provider who thinks this may be a tendon problem. Her discomfort is located at the radial side of thumb and wrist that travels down to her elbow. Occasional numbness and tingling in her fingers. MRI of right hand was done. [facility] Medical History (Updated 08/18/24 @ 08:43 by Bipin Toro MD) Varicose veins of both lower extremities Osteoarthritis Surgical History (Updated 08/30/24 @ 15:42 by TIAGO Gautam) History of carpal tunnel release H/O removal of cyst S/P foot surgery Family History Father Bladder cancer Melanoma Mother Afib Social History (Updated 08/30/24 @ 15:48 by TIAGO Gautam) Alcohol intake: current Alcohol intake frequency: holidays/special occasions only Alcohol type: wine Patient Tobacco Use Status: Never used Tobacco Current occupation: right hand dominant Review of Systems Const All systems reviewed & are unremarkable except as noted in HPI and below Physical Exam Vital Signs: BMI result Body Mass Index 26.6 Extrem Other: Patient is alert, oriented, and in no acute distress. Neuro: Normal sensation of the tips of all digits of the bilateral hands at this time Vascular: Cap refill brisk Pain: Tenderness to palpation of right radial styloid Positive Talia test on the right ROM: Patient is able to make a closed fist and extend all digits of the right hand fully Skin: No lacerations or abrasions. General: No ecchymosis, erythema, or evidence of infection. Psych: Appears grossly normal Affect normal Attitude cooperative Assessment & Plan Assessment & Plan (1) De Quervain's tenosynovitis, right: Comment: Discussed conservative management. Failed occupational therapy and celecoxib. We discuss next steps with cortisone injection. 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 I recommend that she needs 24-48 hours of light duties after a cortisone injection to reduce risk of tendon rupture due to the proximity of the injection to 8 tendon and for maximum benefit. Patient will further discuss getting cortisone injection with hand surgeon at a time where she will not have a heavy load at work. Code(s): M65.4 - Radial styloid tenosynovitis [de Quervain] Category: Medical Plan 1. Right de Quervain tenosynovitis Patient is educated about this condition Patient is educated about the typical treatment course At this time, patient states that she is interested in injections, but would not like an injection today, as she has heard that there is a risk of tendon rupture and she needs to work tonight Follow-up in 1-2 weeks for right de Quervain tenosynovitis injection Coding Level of Care Code New Pt Level 3 (85205) Diagnoses De Quervain's tenosynovitis, right M65.4
--- OUTSIDE RECORDS SUMMARY | 2024-08-30 16:43 | XMS_ITS | Patient Health Record ---
Author Organization [facility] Address [address] [facility] [place] [address] Care Team Providers Care Dope Edger Name Role Phone Shiva Valdemar Primary Care Provider Unavailabl e Black, Yessica Unavailable [phone] Allergies Allergen (clinical drug ingredient) Drug/Non Drug [...] primary osteoarthritis of the ankle and/or foot (227779550) Primary osteoarthrit is, left ankle and foot (M19.072) Active confirmed Vital Signs Blood pressure diastolic 55 mm Hg 04/14/2024 Height 5ft 7in in 04/14/2024 Blood pressure systolic 136 mm Hg 04/14/2024 Weight 165 lbs 04/14/2024 BMI 25.84 kg/m2 04/14/2024 Encounters Encounter Location Date Provider Diagnosis [facility] [address] 04/14/2024 Yessica Black Pain in right toe(s) M79.674 ; Onychomycosis B35.1 and Pain in left toe(s) M79.675 [facility] [address] [place] [address] 04/14/2024 Yessica Black [facility] [address] 06/21/2024 Yessica Black Assessments Encounter Date Diagnosis [...] Scan 05/07/2016 *Liver Function Test (LFT) 04/15/2024 23398-Jrnzghaz Plate 06/12/2016 73911-Inqjgigp Plate 07/03/2016 33289-Fcpnyziw Plate 05/07/2016 30158-Yrjiauth Plate 04/24/2016 13900-Awrpbrsg Plate 05/23/2016 53393-Wavekrto Plate 05/28/2016 43978- Debride <25 sq cm 05/28/2016 10492- Debride <25 sq cm 05/23/2016 84032- Debride <25 sq cm 05/07/2016 57886- Debride <25 sq cm 07/03/2016 46484- Debride <25 sq cm 06/12/2016 16480, C6984-TQRUG/INJECT, JOINT/BURSA 1 04/21/2015 Next Appt Details Provider Name:Yessica Marinelli Frederick , 08/31/2024 03:00:00 PM, [address] [facility], [place], [address], Insurance Providers Payer Name Payer Address Payer Phone Subscriber Number Group Number Insured Name Patient Relationship to Insured Coverage Start Date Coverage End Date [facility] [address] [facility] [place] [address] [phone] [id number] Leeann Camacho Self - patient is the insured 2 Medical (General) History Medical History History ICD Code Chicken pox Gall bladder osteoarthritis CAD (Cholesterol) covid-19 Headaches/Migraines Surgical History Surgery Date(Month/Year) gall stones 1996 carpal tunnel surgery Vericose veins 2011 Gall bladder removal 1995 left foot- tendon transfer, heel shift, muscle relief 2016
== END 2024-08-30 15:49 | disposition home or self-care (01) ==
LOC: HO.HOS 15:31
PROVIDERS: PCP Physician Assistant Surgical
DX: M65.4 Radial styloid tenosynovitis [de Quervain] (principal)
CPT/HCPCS: 99203

== ENCOUNTER → 2024-08-30 15:30 | Outpatient (BNVA) | payer OTHER, SELFPAY | PROVIDERS: PCP Physician Assistant Surgical ==

== ENCOUNTER 2024-09-06 15:43 | Outpatient (REF) | payer OTHER, SELFPAY ==
--- OUTSIDE RECORDS SUMMARY | 2024-09-06 17:25 | XMS_ITS | Patient Health Record ---
Author Organization [facility] Address [address] [facility] [place] [address] Care Team Providers Care Hydroelectric Plant Maintainer Name Role Phone Shiva Valdemar Primary Care Provider Unavailabl e Black, Yessica Unavailable [phone] Allergies Allergen (clinical drug ingredient) Drug/Non Drug [...] Duration) Notes Start Date End Date Status Ciclopirox 0.77 % 1 application to aff ected area Externally Twice a day to effected nails for 30 days 08/31/2024 Active Diane Not-Taking Zetia Not-Taking Custom Orthotics as directed 01/12/2016 Not-Taking Spironolactone 25 MG 1 tablet Orally Active CeleBREX 200 MG 1 capsule with food Orally Once a day Active Calan 240 mg Active Terbinafine HCl 250 MG 1 tablet Orally [...] week for 3- 4 weeks 06/12/2016 Not-Taking Simvastatin 10 MG 2 tablets in the jie librado Orally Once a day Active Physical Therapy 3-4x per week for 3- 4 weeks Not-Taking Social History Tobacco Use: Social History Observation [...] to 4 times a month (2 points) How many drinks did you have on a typical day when you were drinking in the past year? 1 or 2 drinks (0 point) How often did you have six o r more drinks on one occasion in the past year? Less than monthly (1 point) Points 3 Interpretation Positive Problems Problem Type SNOMED Code ICD Code Onset Dates Problem Status W/U Status Risk Notes Problem Localized, primary osteoarthritis of the ankle and/or foot (213185860) Primary osteoarthrit is, left ankle and foot (M19.072) Active confirmed Vital Signs Blood pressure diastolic 55 mm Hg 08/31/2024 Height 5ft 7in in 08/31/2024 Blood pressure systolic 136 mm Hg 08/31/2024 Weight 165 lbs 08/31/2024 BMI 25.84 kg/m2 08/31/2024 Encounters Encounter Location Date Provider Diagnosis [address] [address] 04/14/2024 Yessica Black Pain in right toe(s) M79.674 ; Onychomycosis B35.1 and Pain in left toe(s) M79.[address] [address] 08/31/2024 Yessica Black Pain in right toe(s) M79.674 ; Onychomycosis B35.1 and Pain in left toe(s) M79.675 [facility] [address] [place] [address] 04/14/2024 Yessica Black [address] [address] 06/21/2024 Yessica Black Assessments Encounter Date Diagnosis (ICD Code) Assessment Notes Treatment Notes Treatment Clinical Notes Section Notes 04/14/2024 Pain in right toe(s) (ICD-10 - M79.674) 08/31/2024 Pain in right toe(s) (ICD-10 - M79.674) 08/31/2024 Onychomycosis (ICD-10 - B35.1) 04/14/2024 Onychomycosis (ICD-10 - B35.1) 04/14/2024 Pain in left toe(s) (ICD-10 - M79.675) 08/31/2024 Pain in left toe(s) (ICD-10 - M79.675) Plan Of Treatment Pending Test Test Name Order Date MRI : Foot, left 05/23/2016 Tc99 3 phase Bone Scan 05/07/2016 *Liver Function Test (LFT) 08/31/2024 *Liver Function Test (LFT) 04/15/2024 60232-Wpstqbnx Plate 06/12/2016 64881-Qehfvbgm Plate 07/03/2016 18026-Zhjmefzf Plate 05/07/2016 49891-Filcuclx Plate 04/24/2016 57412-Zxgegldo Plate 05/23/2016 81062-Emzcrana Plate 05/28/2016 78785- Debride <25 sq cm 05/28/2016 45299- Debride <25 sq cm 05/23/2016 32345- Debride <25 sq cm 05/07/2016 63537- Debride <25 sq cm 07/03/2016 04422- Debride <25 sq cm 06/12/2016 68403, Z6632-QCSAP/INJECT, JOINT/BURSA 1 04/21/2015 Next Appt Details Provider Name:Yessica Mack , 11/30/2024 03:00:00 PM, [address] [place] [address], Insurance Providers Payer Name Payer Address Payer Phone Subscriber Number Group Number Insured Name Patient Relationship to Insured Coverage Start Date Coverage End Date [facility] [address] [facility] [address] [phone] [id number] Leeann Camacho Self - patient is the insured 2 Medical (General) History Medical History History ICD Code Chicken pox Gall bladder osteoarthritis CAD (Cholesterol) covid-19 Headaches/Migraines Surgical History Surgery Date(Month/Year) gall stones 1995 carpal tunnel surgery Vericose veins 2010 Gall bladder removal 1995 left foot- tendon transfer, heel shift, muscle relief 2017
[2024-09-06 17:28] LABS: Alanine Aminotransferase 26 U/L (0-31); Aspartate Amino Transferase 28 U/L (5-31)
[2024-09-06 17:29] LABS: Alanine Aminotransferase 27 U/L (0-31); Albumin Level 4.8 g/dL (3.5-5.0); Alkaline Phosphatase 65 U/L (39-117); Aspartate Amino Transferase 30 U/L (5-31); Bilirubin Direct 0.1 mg/dL (0.0-0.5); Bilirubin Total 0.3 mg/dL (0.0-1.0); Total Protein 6.6 g/dL (6.5-8.0)
== END 2024-09-06 15:44 | disposition home or self-care (01) ==
LOC: HO.LAB 15:43
PROVIDERS: Absent Provider Internal Medicine Rheumatology; PCP Physician Assistant Surgical; Visit Provider Podiatrist
DX: R74.01 Elevation of levels of liver transaminase levels (principal); B35.1 Tinea unguium
CPT/HCPCS: 36415; 80076; 84450; 84460

== ENCOUNTER 2024-09-10 14:41 | Outpatient (AMB) | payer OTHER, SELFPAY ==
--- OUTSIDE RECORDS SUMMARY | 2024-09-10 14:44 | XMS_ITS | Patient Health Record ---
Author Organization [facility] Address [address] [facility] [place] [address] Care Team Providers Care Labor Specialist Name Role Phone Shiva Valdemar Primary Care Provider Unavailabl e Black, Yessica Unavailable [phone] Allergies Allergen (clinical drug ingredient) Drug/Non Drug [...] primary osteoarthritis of the ankle and/or foot (572757400) Primary osteoarthrit is, left ankle and foot (M19.072) Active confirmed Vital Signs Blood pressure diastolic 55 mm Hg 08/31/2024 Height 5ft 7in in 08/31/2024 Blood pressure systolic 136 mm Hg 08/31/2024 Weight 165 lbs 08/31/2024 BMI 25.84 kg/m2 08/31/2024 Encounters Encounter Location Date Provider Diagnosis [address] [address] 04/14/2024 Yessica Black Pain in right toe(s) M79.674 ; Onychomycosis B35.1 and Pain in left toe(s) M79.[address] [address] 08/31/2024 Yessica Black Pain in right toe(s) M79.674 ; Onychomycosis B35.1 and Pain in left toe(s) M79.[address] [address] 09/07/20[facility] [address] [facility] [address] [facility] [place] [address] 06/21/2024 Yessica Mack Assessments Encounter Date Diagnosis (ICD Code) Assessment [...] (LFT) 08/31/2024 *Liver Function Test (LFT) 04/15/2024 *Liver Function Test (LFT) 09/10/2024 43045-Euexhetx Plate 06/12/2016 32197-Cqzmvzgg Plate 07/03/2016 15062-Auahwvja Plate 05/07/2016 72190-Pcxcgcfx Plate 04/24/2016 30426-Czxppgrr Plate 05/23/2016 10822-Fyyhdgci Plate 05/28/2016 26953- Debride <25 sq cm 05/28/2016 60258- Debride <25 sq cm 05/23/2016 54182- Debride <25 sq cm 05/07/2016 45865- Debride <25 sq cm 07/03/2016 38172- Debride <25 sq cm 06/12/2016 44357, X5896-YSRXH/INJECT, JOINT/BURSA 1 04/21/2015 Next Appt Details Provider Name:Yessica Mack , 11/30/2024 03:00:00 PM, [facility] [address], [place], [address], Insurance Providers Payer Name Payer Address Payer Phone Subscriber Number Group Number Insured Name Patient Relationship to Insured Coverage Start Date Coverage End Date [facility] [address] [place] [address] [phone] [id number] Leeann Camacho Self - patient is the insured 2 Medical (General) History Medical History History ICD Code Chicken pox Gall bladder osteoarthritis CAD (Cholesterol) covid-19 Headaches/Migraines Surgical History Surgery Date(Month/Year) gall stones 1996 carpal tunnel surgery Vericose veins 2010 Gall bladder removal 1995 left foot- tendon transfer, heel shift, muscle relief 2017
--- NOTE | 2024-09-10 14:45 | A.OFFVIS_ITS ---
Intake Visit Reasons: INJ RT Dequervain Intake Note: Leeann is a 59 year old right hand dominant female who presents today for a right De Quervain's injection. Allergies Sulfa (Sulfonamide Antibiotics) Allergy (Intermediate, Verified 08/30/24 15:41) Itching acetaminophen [From Percocet] Allergy (Mild, Verified 08/30/24 15:41) rash, itchy oxycodone [From Percocet] Allergy (Mild, Verified 08/30/24 15:41) rash, itchy hydrocet Allergy (Mild, Uncoded 08/30/24 15:41) rash, itchy HPI HPI INJ RT Dequervain: Details: Leeann is a 59 year old right hand dominant female who presents today for a right De Quervain's injection. Patient reports symptoms have remained constant since previous evaluation. No other acute complaints or concerns at this time. [facility] Medical History (Updated 08/18/24 @ 08:43 by Bipin Toro MD) Varicose veins of both lower extremities Osteoarthritis Surgical History (Updated 08/30/24 @ 15:42 by TIAGO Gautam) History of carpal tunnel release H/O removal of cyst S/P foot surgery Family History Father Bladder cancer Melanoma Mother Afib Social History (Updated 08/30/24 @ 15:48 by TIAGO Gautam) Alcohol intake: current Alcohol intake frequency: holidays/special occasions only Alcohol type: wine Patient Tobacco Use Status: Never used Tobacco Current occupation: right hand dominant Office Procedures AMB Tendon Injection Tendon Injection 29874-Thwxft Tendon Sheath Injection All charges added?: Procedure code (CPT) selection complete Assessment & Plan Assessment & Plan (1) De Quervain's tenosynovitis, right: Comment: Discussed conservative management. Failed occupational therapy and celecoxib. We discuss next steps with cortisone injection. 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 I recommend that she needs 24-48 hours of light duties after a cortisone injection to reduce risk of tendon rupture due to the proximity of the injection to 8 tendon and for maximum benefit. Patient will further discuss getting cortisone injection with hand surgeon at a time where she will not have a heavy load at work. Code(s): M65.4 - Radial styloid tenosynovitis [de Quervain] Category: Medical Plan 1. De Quervain tenosynovitis, right Patient is educated about this condition Patient is educated about the typical recovery course Patient would like to proceed with steroid injection Injection #1: The risks and benefits of a steroid injection including but not limited to risk of damage to blood vessels, nerves, tendons, infection, skin bleaching, failure to improve symptoms, increased pain, and possible need for further injections or other intervention were discussed with the patient and the patient wishes to proceed with the steroid injection. Once consent was obtained, I sterilely prepped the area over the 1st dorsal compartment of the right thumb. I then injected the 1st dorsal compartment with a combination of 1 mL of dexamethasone (4mg/ml), and 1% lidocaine. The patient tolerated the procedure well with no complications and good resolution of their symptoms prior to leaving clinic. If the patient continues to have pain 6-8 weeks following this injection, they may call to schedule appointment to discuss alternative treatment options Coding Level of Care Code Procedure Only Diagnoses De Quervain's tenosynovitis, right M65.4 CPT Codes Tendon Injection - Tendon Injection 1: 30381-Jndnnl Tendon Sheath Injection ([id number])
== END 2024-09-10 15:12 | disposition home or self-care (01) ==
LOC: HO.HOS 14:42
PROVIDERS: PCP Physician Assistant Surgical
DX: M65.4 Radial styloid tenosynovitis [de Quervain] (principal)
CPT/HCPCS: 20550

== ENCOUNTER → 2024-09-10 14:41 | Outpatient (BNVA) | payer OTHER, SELFPAY | PROVIDERS: PCP Physician Assistant Surgical | DX: M65.4 Radial styloid tenosynovitis [de Quervain] (principal) | CPT/HCPCS: 20550; J1100; J2003 ==

== ENCOUNTER 2024-11-12 08:27 | Outpatient (AMB) | payer OTHER, SELFPAY ==
[2024-11-12 08:31] VITALS: BMI 26.6
--- NOTE | 2024-11-12 08:31 | MHC.OFFVIS ---
Vital Signs 11/12/24 08:31 Height 5 ft 6 in Weight 165 lb BMI 26.6 Intake Visit Reasons: OV-RT Dequervain-last inj 09/10/24- Intake Note: Leeann is a 59 year old right hand dominant female who presents today for follow up her right De Quervain tenosynovitis. She was given an injection on 09/10/24. Patient states the injection did not help.She states she is still in a great amount of pain. She would like to discuss other treatment options today. Allergies Sulfa (Sulfonamide Antibiotics) Allergy (Intermediate, Verified 11/12/24 08:31) Itching acetaminophen (From Percocet) Allergy (Mild, Verified 11/12/24 08:31) rash, itchy oxycodone (From Percocet) Allergy (Mild, Verified 11/12/24 08:31) rash, itchy hydrocet Allergy (Mild, Uncoded 11/12/24 08:31) rash, itchy HPI HPI OV-RT Dequervain-last inj 09/10/24-: Details: Patient is a 59-year-old female who presents for repeat evaluation of right de Quervain tenosynovitis. Patient was previously evaluated for this and received a steroid injection into this area, last injection performed on 09/10/2024. Today, the patient reports that she got minimal if any relief from the injection, and her pain is right back to where it was prior to previous injection. Patient states that she is potentially interested in receiving another injection today, but also potentially might be interested in further treatment options if there are any available. Denies numbness or tingling in the right hand. No other acute complaints or concerns at this time. [facility] Medical History Varicose veins of both lower extremities Osteoarthritis Surgical History History of carpal tunnel release H/O removal of cyst S/P foot surgery Family History Father Bladder cancer Melanoma Mother Afib Social History Alcohol intake: current Alcohol intake frequency: holidays/special occasions only Alcohol type: wine Patient Tobacco Use Status: Never used Tobacco Current occupation: right hand dominant Review of Systems Const All systems reviewed & are unremarkable except as noted in HPI and below Physical Exam Vital Signs: BMI result Body Mass Index 26.6 Extrem Other: Patient is alert, oriented, and in no acute distress. Neuro: Normal sensation of the tips of all digits of the bilateral hands at this time Vascular: Cap refill brisk Pain: Tenderness to palpation of right radial styloid Positive Talia test on the right ROM: Patient is able to make a closed fist and extend all digits of the right hand fully Skin: No lacerations or abrasions. General: No ecchymosis, erythema, or evidence of infection. Psych: Appears grossly normal Affect normal Attitude cooperative Office Procedures AMB Tendon Injection Tendon Injection [id number] Tendon Sheath Injection All charges added?: Procedure code (CPT) selection complete Assessment & Plan Assessment & Plan (1) De Quervain's tenosynovitis, right: Comment: Discussed conservative management. Failed occupational therapy and celecoxib. We discuss next steps with cortisone injection. 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 I recommend that she needs 24-48 hours of light duties after a cortisone injection to reduce risk of tendon rupture due to the proximity of the injection to 8 tendon and for maximum benefit. Patient will further discuss getting cortisone injection with hand surgeon at a time where she will not have a heavy load at work. Code(s): M65.4 - Radial styloid tenosynovitis [de Quervain] Category: Medical Plan 1. De Quervain tenosynovitis, right Patient is educated about this condition Patient is educated about the treatment options available, namely steroid injections and 1st dorsal compartment release under local anesthesia Patient would like to proceed with repeat steroid injection at this time Injection #1: The risks and benefits of a steroid injection including but not limited to risk of damage to blood vessels, nerves, tendons, infection, skin bleaching, failure to improve symptoms, increased pain, and possible need for further injections or other intervention were discussed with the patient and the patient wishes to proceed with the steroid injection. Once consent was obtained, I sterilely prepped the area over the 1st dorsal compartment of the right thumb. I then injected the 1st dorsal compartment with a combination of 1 mL of dexamethasone (4mg/ml), and 1% lidocaine. The patient tolerated the procedure well with no complications and good resolution of their symptoms prior to leaving clinic. If the patient continues to have pain 6-8 weeks following this injection, they may call to schedule appointment to discuss alternative treatment options Coding Level of Care Code Est Pt Level 3 (63910) Diagnoses De Quervain's tenosynovitis, right M65.4 CPT Codes Tendon Injection - Tendon Injection 1: [id number] Tendon Sheath Injection ([id number])
--- OUTSIDE RECORDS SUMMARY | 2024-11-12 08:33 | XMS_ITS | Clinical Summary ---
Author Organization [facility] Address [address] [place] [address] Care Team Providers Care Television Writer Name Role Phone Saurav Irvin Primary Care Provider [phone] Allergies Active Allergy Reactions Criticality Noted Date [...] mutation : Child Cancer (?Type) Father malignant jnae plasm of urinary bladder : Father Cancer [...] (Shingrix) (1 of 2) 2016 COVID-19 Vaccine (1 - 2023-2 5 season) 2023 Influenza (#1) 2024 HPV Vaccine (No Doses Required) Completed Hep A Aged Out No longer eligi ble based on patient's age to complete this topic Hib Aged Out No longer eligi ble based on patient's age to complete this topic Meningococcal ACWY Aged Out No longer eligible based on patient's age to complete this topic Care Teams Television Writer Relationship Specialty Start Date End Date Saurav Irvin [address] [place] [id number] PCP - General 11/04/22
--- OUTSIDE RECORDS SUMMARY | 2024-11-12 08:33 | XMS_ITS | Clinical Summary ---
Author Organization [facility] Address [address] [address] Phone Care Team Providers Care Consumer Affairs Manager Name Role Phone Jeferson Desai MD Unavailable [phone] Bipin Toro MD Unavailable Saturnino Renner MD Unavailable [phone] Amando Herrera MD Unavailable Tressa Matthews MD Unavailable [phone] Acosta Mcqueen MD Unavailable [phone] Valdemar Shannon PA-C Primary Care Provider [phone] Allergies Active Allergy Reactions Criticality Noted Date Comments Hydrocodone-Acetamin ophen Other (See Comments) 03/16/2018 hyperactivity Oxycodone-Acetaminop hen Other (See Comments) 03/16/2018 Sweating,headache Sulfa (Sulfonamide Antibiotics) Itching,Swelling,Rash Low 03/16/2018 Medications celecoxib (CELEBREX) 200 MG capsule Take 200 mg by mouth 2 (two) times a day. 04/08/2020 Active verapamiL (CALAN-SR) 240 MG CR tablet TAKE 1 TABLET BY MOUTH EVERY NIGHT AT BEDTIME 90 tablet 04/03/2023 Active simvastatin (ZOCOR) 10 MG tabletIndicatio ns:Hyperlipidem ia Take 1 tablet (10 mg total) by mouth nightly at bedtime. 90 tablet 3 05/14/2024 Active spironolactone (ALDACTONE) 25 MG tablet TAKE 1 TABLET BY MOUTH EVERY MORNING 90 tablet 3 05/14/2024 Active Active Problems Problem Noted Date Diagnosed Date Routine general medical exam ination at a health care facility 06/09/2024 Assessment & Plan (06/09/2024 8:22 AM EDT): Labs reviewed with patient during her physical. Patient overall is doing well. She is up-to-date on her mammogram and not due for a VOLUNTEER COORDINATOR exam until next year. She did obtain a VOLUNTEER COORDINATOR. She is not due for a colonoscopy until 2026 She is due for dental surgery coming up in a couple weeks. She is also due for an eye exam Follow-up in 6 months for recheck Follow-up 1 year for annual physical Encounter for medication monitoring 11/12/2023 Assessment & Plan (11/12/2023 8:10 AM EDT): CMP as patient is on Celebrex Migraine with aura and witho ut status migrainosus, not intractable 05/29/2023 Assessment & Plan (11/12/2023 8:10 AM EDT): Patient with a history of migraines and follows with neurology. Her neurologist retired therefore needed a referral for a new one. Referral placed for Dr. Carmichael Osteoarthritis of both hands 05/09/2022 Assessment & Plan (06/09/2024 8:23 AM EDT): Patient follows with rheumatology and is undergoing OT. She is maintained on Celebrex 200 mg p.o. twice daily. She has an upcoming appointment in the next 3 weeks. Assessment & Plan (11/12/2023 8:09 AM EDT): Patient follows with Dr. Medina and is on Celebrex.. She has her CMP monitored every 3 months. Ever noted to have an elevated BUN back in May and I have lab results from the physician in May and she had another set in August but I do not have those results. -Will order CMP and she will continue on Celebrex she has an upcoming appointment in November with a different doctor in that practice until Dr. Medina gets established in her new practice where she has an appointment with her either in February or March Assessment & Plan (05/09/2022 9:04 AM EST): Continue to follow with Dr. Toro who is ordering q 3 month liver/kidney function tests Factor V Leiden mutation 04/16/2019 Assessment & Plan (06/09/2024 8:23 AM EDT): Patient with a history of factor V Leyden without any history of DVTs or PEs. Assessment & Plan (11/12/2023 8:08 AM EDT): No history of DVT or PE follows with a vest presser Essential hypertension 04/20/2018 Assessment & Plan (06/09/2024 8:23 AM EDT): Well-controlled on verapamil 240 mg daily and spironolactone 25 mg daily. Last CMP reveals normal kidney function Assessment & Plan (11/12/2023 8:14 AM EDT): Well-controlled continue spironolactone 25 mg p.o. daily and verapamil 240 mg p.o. nightly Assessment & Plan (05/09/2022 9:02 AM EST): Well controlled Hyperlipidemia 04/20/2018 Assessment & Plan (06/09/2024 8:22 AM EDT): Last lipid panel noted LDL of 108 which is by MGB standards within normal limits. Patient to continue home dose of simvastatin 10 mg daily Assessment & Plan (11/12/2023 8:08 AM EDT): Last lipid panel back in May which was well within normal limits. Continue simvastatin 10 mg p.o. daily Assessment & Plan (05/09/2022 9:02 AM EST): Well controlled on simvastatin Resolved Problems Problem Noted Date Diagnosed Date Resolved Date Lump of skin 11/22/2019 05/29/2023 Chronic headache 04/20/2018 11/12/2023 Assessment & Plan (05/09/2022 9:03 AM EST): Stable, continue verapamil Encounters Date Type Department Care Team Description 09/07/2024 Orders Only [facility] Internal Medicine [address] [place] [address] Verna Lambert MD 08/19/2024 Orders Only [facility] [address] [place] [address] ProviderVerna MD 08/18/2024 Orders Only [facility] Internal Medicine [address] [facility] [place] [address] Provider, MD Verna from Last 3 Months Immunizations Immunization Administration Dates Next Due COVID-19 (Pre-01/20) Herlinda Vaccine, rS-Ad26, PF 07/04/2020 INFLUENZA, SPLIT VIRUS, TRIV ALENT W/ PRESERVATIVE IM 12/29/2021,12/08/2009 Influenza Quadrivalent Prese rvative Free IM 01/01/2023,01/01/2021,12/31/2018,12/28,12/26/2016,01/04/2016 Influenza Quadrivalent w/ Pr eservative IM 12/21/2019 Influenza Trivalent MDCK Pre servative Free IM 11/26/2023 Influenza, Unspecified Formulation 01/04/2016, PPD Test 08/26/2018 Pneumococcal polysaccharide PPSV23 09/16/2013 Td (adult) 5 Lf Tetanus Toxo id, PF, Adsorbed 05/29/2023 Tdap 11/26/2023,09/16/2013 Zoster recombinant 01/27/2019,10/07/2018 Family History Medical History Relation Comments Atrial fibrillation Brother 2 Hypertension Brother 2 Hypertension Brother 3 No Known Problems Daughter 1 No Known Problems Daughter 2 Bladder Cancer Father Skin cancer Father Breast cancer Maternal Grandmother Heart disease Mother Hyperlipidemia Mother Hypertension Mother No Known Problems Sister Relation Status Comments Brother 1 (Age 30) reaction to co ld medicine Brother 2 Alive Brother 3 Alive Daughter 1 Alive Daughter 2 Alive Father Maternal Grandmother Mother Sister Alive Social History Tobacco Use Types Packs/Day Years Used Date Smoking Tobacco: Never Smokeless Tobacco: Never Alcohol Use Standard Drinks/Week Comments Yes 0 (1 standard drink = 0.6 oz pur e alcohol) 1-2 drinks, 2-4 x month Child or Family Care Answer Date Record ed Do you have problems with on e of the following making it difficult for you to work, study, or receive health care? No 06/02/2024 Education Answer Date Recorded Are you interested in help w ith more adult education (for example, completing high school, GED, job training, learning the [place] language, technical skills, or developing parenting skills)? No 06/02/2024 Are you concerned about learning? Not on file 06/02/2024 No 06/02/2024 Yes 06/02/2024 Food Answer Date Recorded Within the past 6 months we worried whether our food would run out before we got money to buy more. Never True 06/02/2024 Within the past 6 months the food we bought just didn't last and we didn't have enough money to get more. Never True Residential Stability Answer Date Recor ded What is your housing situation today? I have christian sing 06/02/2024 How many times have you move d in the past 12 months? Zero (I did not move) 06/02/2024 Paying for Meds Answer Date Recorded Do you have trouble paying for medicines? No 06/02/2024 Paying Utility Bills Answer Date Record ed Do you have trouble paying your heating or elect ricity bill? No 06/02/2024 Transportation Answer Date Recorded Has the lack of transportati on kept you from medical appointments or from getting medications? No 06/02/2024 Unemployment Answer Date Recorded Are you currently unemployed or working on a part-time or temporary basis, and looking for work? No 05/04/2022 Digital Access Answer Date Recorded No 06/02/2024 Yes 06/02/2024 Do you have reliable internet access at home? Ye s 06/02/2024 Do you have a device (e.g., phone, tablet, computer) with a working camera? Yes 06/02/2024 Intimate Partner Violence Answer Date R ecorded Denied Basic Needs Not on file 06/02/2024 In the past 12 months have y ou been in a relationship with a person who hurts, threatens, or tries to control you? No 06/02/2024 Worried food would run out Not on file 06/02 In the past 12 months have y ou been in a relationship with a person who hurts, threatens, or tries to control you? No 06/02/2024 Comments Unknown Sex and Gender Information Value Date Recorded Sex Assigned at Not on file Legal Sex Female 2:21 PM EST Gender Identity Not on file Sexual Orientation Not on file Last Filed Vital Signs Vital Sign Reading Time Taken Comments Blood Pressure 110/72 06/09/2024 7:23 AM EDT Pulse 70 06/09/2024 7:23 AM EDT Temperature 36.7 C (98 F) 11/12/2023 7:26 AM EDT Respiratory Rate 16 06/09/2024 7:23 AM EDT Oxygen Saturation 99% 06/09/2024 7:23 AM EDT Inhaled Oxygen Concentration - - Weight 77.9 kg (171 lb 12.8 oz) 06/09/2024 7:23 AM EDT Height 168.9 cm (5' 6.5 ) 06/09/2024 7:23 AM EDT Body Mass Index 27.31 06/09/2024 7:23 AM EDT Plan of Treatment Upcoming Encounters Date Type Department Care Team (Late st Contact Info) Description 12/14/2024 3:00 PM EDT Office Visit [facility] Medical [facility] Internal Medicine [address] [place] [address] Valdemar Shannon PA-C [address] [place] [address] [email or web address] Health Maintenance Due Date Last Done Comments HIV ONE-TIME SCREENING (18-65 YEARS) 1984 COLOGUARD 08/28/2011 FIT TEST 08/28/2011 FOBT 08/28/2011 SIGMOIDOSCOPY 08/28/2011 VIRTUAL COLONOSCOPY 08/28/2011 PNEUMOCOCCAL VACCINES (50+ years) (2 of 2 - PCV) 2016 09/16/2013 COLONOSCOPY 11/07/2021 11/07/2016, 11/07/2016 COLORECTAL CANCER SCREENING 11/07/2021 MAMMOGRAM 11/07/2024 11/07/2022, 10/30, 11/27/2019, Additional history exists BLOOD PRESSURE 12/10/2024 06/09/2024 DEPRESSION SCREENING 06/02/2025 06/02/2024 POTASSIUM LEVEL 06/08/2025 06/08/2024, 10/29, 05/29/2023, Additional history exists PAP SMEAR 09/25/2025 09/25/2022, 08/30, 09/13/2019, Additional history exists SCREENING FOR DIABETES 06/09/2027 , 05/04/2022, 10/05/2020 LIPID PANEL 06/08/2029 06/08/2024, 05/02, 05/04/2022, Additional history exists Adult Td,Tdap Booster 11/25/2033 11/26/2023 , 05/29/2023, 09/16/2013 ZOSTER VACCINES Completed 01/27/2019, 10/07/2018 COVID-19 VACCINE Completed 11/26/2023, 06/2022, 01/02/2022, Additional history exists HEPATITIS C SCREENING Completed 04/21/2024 SMOKING STATUS SCREENING (Once After 26 Yrs) Completed 06/09/2024 HEPATITIS A VACCINES Aged Out No long er eligible based on patient's age to complete this topic HIB VACCINES Aged Out No longer eligi ble based on patient's age to complete this topic MENINGOCOCCAL VACCINES (ACWY) Aged Out No longer eligible based on patient's age to complete this topic MENINGOCOCCAL VACCINES (B) Aged Out N o longer eligible based on patient's age to complete this topic Medical Devices Not on file Procedures Procedure Name Priority Date/Time Associated Diagnosis Comments OUTSIDE LAB Routine 09/06/2024 1:08 PM EDT OUTSIDE LAB Routine 08/17/2024 12:11 PM EDT OUTSIDE LAB Routine 08/17/2024 8:12 AM EDT LIPID PANEL Routine 06/08/2024 Hyperlipidemia, unspecified hyperlipidemia type COMPREHENSIVE METABOLIC PANEL Routine 06/08/2024 Routine general medical examination at a [facility] care facility OUTSIDE HEPATITIS C VIRUS SCREENING Routine 04/21/2024 HM MAMMOGRAPHY Routine 11/07/2022 10:46 AM EDT PAP TEST Routine 09/25/2022 OUTSIDE GLUCOSE FASTING Routine 10/05/2020 COLONOSCOPY FOR RESULT ENTRY ONLY Routine 11/07/2016 from Last 3 Months or Most Recently Relevant to Health Maintenance Results * Outside Lab (09/06/2024 1:08 PM EDT) Only the most recent of3 resultswithin the time period is included. Historical Provider MD LAB BLOOD ORDERABLES Tiffany l Result * Comprehensive metabolic panel (06/08/2024) Sodium - External [facility] Potassium - External 4.4 [facility] Chloride - External [facility] CO2 - External [facility] BUN - External [facility] Creatinine - External 0.84 [facility] Glucose - External 85 [facility] Albumin - External [facility] Protein - External [facility] Calcium - External [facility] Alkaline Phosphatase - External [facility] Bilirubin, total - External [facility] AST - External [facility] ALT - External 20 [facility] Globulin - External [facility] eGFR - External [facility] Anion Gap - External [facility] Blood 06/08/2024 Valdemar Shannon PA-C LAB BLOOD ORDERABLES Edited R esult - Final [facility] [address] [place] [address] * Lipid panel (06/08/2024) HDL - External 66 [facility] Cholesterol, Total - External 189 [facility] Triglycerides - External 82 [facility] LDL, calculated - External 108 [facility] Cardiac Risk Ratio - External [facility] Non-HDL Cholesterol - External [facility] Blood 06/08/2024 Valdemar Shannon PA-C LAB BLOOD ORDERABLES Edited R esult - Final [facility] [address] [place], [place] [id number] * Outside Hepatitis C Virus Screening (04/21/2024) Hepatitis C Screening - External Neg Historical Provider LAB BLOOD ORDERABLES Tiffany l Result * MAMMOGRAPHY FOR RESULT ENTRY ONLY (11/07/2022 10:46 AM EDT) Jeferson Desai MD HEALTH MAINTENANCE Final Resul t * Pap Test (09/25/2022) Kerri Simmons REGISTERED PHARMACY TECHNICIAN CYTOLOGY ORDERABLES Edited Resu lt - Final * (ABNORMAL) Outside Glucose,Fasting (10/05/2020) Glucose, fasting - External 101(A) 65 - 99 mg/dL Result [facility] Historical Provider LAB BLOOD ORDERABLES Tiffany l Result * COLONOSCOPY FOR RESULT ENTRY ONLY (11/07/2016) Result [facility] Historical Provider HEALTH MAINTENANCE Final Result from Last 3 Months or Most Recently Relevant to Health Maintenance [place] [address] [address] [id number] HMO [facility] [address] [place] [id number] [facility] HMO Care Teams Consumer Affairs Manager Relationship Specialty Start Date End Date Valdemar Shannon PA-C [address] [place] [address] [email or web address] PCP - General Physician [employer] Set Up Technician 11/12/23 Jeferson Desai MD Obstetrics and Gynecology 09/23/19 Bipin Toro MD 06/22/20 Saturnino Renner MD [address] [address] Psychiatry 11/22/20 Amando Herrera MD [address] [address] Gastroenterology 01/31/21 Tressa Matthews MD [address] [place] [address] Gastroenterology 05/09/22 Acosta Mcqueen MD [address] [place] [address] Neurology 05/29/23 Additional Source Comments The information contained in this document represents components of the legal health record. It is not the complete legal health record.[facility]
== END 2024-11-12 09:04 | disposition home or self-care (01) ==
LOC: HO.HOS 08:27
PROVIDERS: PCP Physician Assistant Surgical
DX: M65.4 Radial styloid tenosynovitis [de Quervain] (principal)
CPT/HCPCS: 20550; 99213

== ENCOUNTER → 2024-11-12 08:27 | Outpatient (BNVA) | payer OTHER, SELFPAY | PROVIDERS: PCP Physician Assistant Surgical | DX: M65.4 Radial styloid tenosynovitis [de Quervain] (principal) | CPT/HCPCS: 20550; J1100; J2003 ==

== ENCOUNTER 2024-12-29 15:04 | Outpatient (AMB) | payer OTHER, SELFPAY ==
--- NOTE | 2024-12-29 15:14 | MHC.OFFVIS ---
Vital Signs 12/29/24 15:22 Height 5 ft 6 in Weight 165 lb BMI 26.6 Handedness Right Intake Visit Reasons: OV-RT Dequervain-last inj 11/12/24 Intake Note: Leeann is a 59 year old right hand dominant female who presents today for a follow up of her Right De Quervain Tenosynovitis. She was last seen 11/12/24 where she received an injection. Today she is reporting the injection was not helpful at all and would discuss alternative treatment options. Allergies Sulfa (Sulfonamide Antibiotics) Allergy (Intermediate, Verified 12/29/24 15:22) Itching acetaminophen (From Percocet) Allergy (Mild, Verified 12/29/24 15:22) rash, itchy oxycodone (From Percocet) Allergy (Mild, Verified 12/29/24 15:22) rash, itchy hydrocet Allergy (Mild, Uncoded 12/29/24 15:22) rash, itchy HPI HPI OV-RT Dequervain-last inj 11/12/24: Details: Leeann is a 59 year old right hand dominant female who presents today for a follow up of her Right De Quervain Tenosynovitis. She was last seen 11/12/24 where she received an injection. Today she is reporting the injection was not helpful at all and would discuss alternative treatment options. 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 Neuro: Normal sensation of the tips of all digits of the bilateral hands at this time Vascular: Cap refill brisk Pain: Tenderness to palpation of right radial styloid Positive Talia test on the right ROM: Patient is able to make a closed fist and extend all digits of the right hand fully Skin: No lacerations or abrasions. General: No ecchymosis, erythema, or evidence of infection. Psych: Appears grossly normal Affect normal Attitude cooperative Assessment & Plan Assessment & Plan (1) De Quervain's tenosynovitis, right: Comment: Discussed conservative management. Failed occupational therapy and celecoxib. We discuss next steps with cortisone injection. 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 I recommend that she needs 24-48 hours of light duties after a cortisone injection to reduce risk of tendon rupture due to the proximity of the injection to 8 tendon and for maximum benefit. Patient will further discuss getting cortisone injection with hand surgeon at a time where she will not have a heavy load at work. Code(s): M65.4 - Radial styloid tenosynovitis [de Quervain] Category: Medical Plan 1. Right de Quervain tenosynovitis I educated the patient about the condition. I discussed both operative and nonoperative treatment options. The patient would like to proceed with surgery. The risks and benefits of operative treatment were discussed with the patient and the patient wishes to proceed with surgery. These risks include, but are not limited to, risk of damage to blood vessels, nerves, tendons, infection, recurrence, incomplete relief of preoperative symptoms, persistent pain, possible need for further surgery, and the risks associated with regional blocks and/or anesthesia. Plan is to take the patient to the operating room at some point in the next few weeks for the following procedures: 1. Right 1st dorsal compartment release under local All of the preoperative paperwork including the consent was discussed today. All of the patient's questions were answered in the clinic today. The patient understands that they will be in contact with our rn surgical pcu to discuss scheduling their procedure. Patient denies diabetes, blood thinners, asthma, heart issues, lung issues, kidney issues, or current smoking. Coding Level of Care Code Est Pt Level 4 (51641) Diagnoses De Quervain's tenosynovitis, right M65.4
[2024-12-29 15:22] VITALS: BMI 26.6
--- OUTSIDE RECORDS SUMMARY | 2024-12-29 16:06 | XMS_ITS | Clinical Summary ---
Author Organization [facility] Address [address] [place] [address] Care Team Providers Care Scowman Name Role Phone Saurav Irvin Primary Care Provider [phone] Allergies Active Allergy Reactions Criticality Noted Date [...] COVID-19 Vaccine (1 - 2023-2 5 season) 2024 Influenza (#1) 2024 HPV Vaccine (No Doses Required) Completed Hep A Aged Out No longer eligi ble based on patient's age to complete this topic Hib Aged Out No longer eligi ble based on patient's age to complete this topic Meningococcal ACWY Aged Out No longer eligible based on patient's age to complete this topic Care Teams Scowman Relationship Specialty Start Date End Date Saurav Irvin [address] [place] [id number] PCP - General 11/04/22
--- OUTSIDE RECORDS SUMMARY | 2024-12-29 16:06 | XMS_ITS | Clinical Summary ---
Author Organization [facility] Address [address] [address] Phone Care Team Providers Care Electronic Data Processing Auditor Name Role Phone Jeferson Desai MD Unavailable [phone] Bipin Toro MD Unavailable Saturnino Renner MD Unavailable [phone] Amando Herrera MD Unavailable Tressa Matthews MD Unavailable [phone] Acosta Mcqueen MD Unavailable [phone] Valdemar Shannon PA-C Primary Care Provider [phone] Allergies Active Allergy Reactions Criticality Noted Date [...] her mammogram and not due for a ANALYTICAL TECHNICIAN exam until next year. She did obtain a ANALYTICAL TECHNICIAN. She is not due for a colonoscopy [...] of DVT or PE follows with a analytical technician Essential hypertension 04/20/2018 Assessment & Plan (06/09/2024 [...] Encounters Date Type Department Care Team Description 12/28/2024 Documentation [facility] Internal Medicine [address] [place] [address] Valdemar Shannon PA-C 12/23/2024 Orders Only [facility] Internal Medicine [address] [place] [address] Provider, MD Verna from Last 3 Months [...] high school, GED, job training, learning the [place]ivian language, technical skills, or developing parenting skills)? [...] Care Team (Late st Contact Info) Description 01/04/2025 3:40 PM EDT Office Visit [facility] Internal Medicine [address] [place] [address] Valdemar Shannon PA-C [address] [place] [address] [email or web address] Health Maintenance Due Date Last Done Comments HIV ONE-TIME SCREENING (18-65 YEARS) 1984 COLOGUARD 08/28/2011 FIT TEST 08/28/2011 FOBT 08/28/2011 SIGMOIDOSCOPY 08/28/2011 VIRTUAL COLONOSCOPY 08/28/2011 PNEUMOCOCCAL VACCINES (50+ years) (2 of 2 - PCV) 2016 09/16/2013 COLONOSCOPY 11/07/2021 11/07/2016, 11/07/2016 COLORECTAL CANCER SCREENING 11/07/2021 INFLUENZA VACCINE (#1) 2024 , 11/26/2023, 01/01/2023, Additional history exists BLOOD PRESSURE 12/10/2024 06/09/2024 DEPRESSION SCREENING 06/02/2025 06/02/2024 POTASSIUM LEVEL 06/08/2025 06/08/2024, 10/29, 05/29/2023, Additional history exists PAP SMEAR 09/25/2025 09/25/2022, 08/30, 09/13/2019, Additional history exists MAMMOGRAM 12/21/2026 12/21/2024, 10/29, 11/27/2019, Additional history exists SCREENING FOR DIABETES 06/09/2027 , 05/04/2022, 10/05/2020 LIPID PANEL 06/08/2029 06/08/2024, 05/02, 05/04/2022, Additional history exists Adult Td,Tdap Booster 11/25/2033 11/26/2023 , 05/29/2023, 09/16/2013 ZOSTER VACCINES Completed 01/27/2019, 10/07/2018 COVID-19 VACCINE Completed 12/10/2024, , 01/01/2023, Additional history exists HEPATITIS C SCREENING Completed [...] Procedure Name Priority Date/Time Associated Diagnosis Comments MAMMOGRAPHY Routine 12/21/2024 11:37 AM EDT LIPID PANEL Routine 06/08/2024 Hyperlipidemia, unspecified hyperlipidemia type COMPREHENSIVE METABOLIC PANEL Routine 06/08/2024 Routine general medical examination at a [facility] care facility OUTSIDE HEPATITIS C VIRUS SCREENING Routine 04/21/2024 PAP TEST Routine 09/25/2022 OUTSIDE GLUCOSE FASTING Routine 10/05/2020 COLONOSCOPY FOR RESULT ENTRY ONLY Routine 11/07/2016 from Last 3 Months or Most Recently Relevant to Health Maintenance Results * MAMMOGRAPHY FOR RESULT ENTRY ONLY (12/21/2024 11:37 AM EDT) us Historical Provider HEALTH MAINTENANCE Final Result * Comprehensive metabolic panel (06/08/2024) Sodium - External [facility] Potassium - External 4.4 [facility] Chloride - External [facility] CO2 - External [facility] BUN - External [facility] Creatinine - External 0.84 [facility] Glucose - External 85 [facility] Albumin - External [facility] Protein - External [facility] Calcium - External [facility] Alkaline Phosphatase - External [facility] Bilirubin, total - External [facility] AST - External [facility] ALT - External 20 [facility] Globulin - External [facility] eGFR - External [facility] Anion Gap - External [facility] Blood 06/08/2024 us Valdemar Shannon PA-C LAB BLOOD ORDERABLES Edited [employer] Performing Organization Address City/[facility]/ZIP Co de Phone Number [address] [phone] * Lipid panel (06/08/2024) HDL - External 66 [facility] Cholesterol, Total - External 189 [facility] Triglycerides - External 82 [facility] LDL, calculated - External 108 [facility] Cardiac Risk Ratio - External [facility] Non-HDL Cholesterol - External [facility] Blood 06/08/2024 Valdemar Shannon PA-C LAB BLOOD ORDERABLES Edited [employer] - PPT [employer] Performing Organization Address City/[facility]/ZIP Co de Phone Number [address] [address] * Outside Hepatitis C Virus Screening (04/21/2024) Hepatitis C Screening - External Neg Result [facility] Historical Provider LAB BLOOD ORDERABLES Tiffany l Result * Pap Test (09/25/2022) Kerri Simmons USED CAR SALES SUPERVISOR CYTOLOGY ORDERABLES Edited Resu lt - Final * (ABNORMAL) Outside Glucose,Fasting (10/05/2020) Glucose, fasting - External 101(A) 65 - 99 mg/dL Historical Provider LAB BLOOD ORDERABLES Tiffany l Result * COLONOSCOPY FOR RESULT ENTRY ONLY (11/07/2016) Historical Provider HEALTH MAINTENANCE Final Result from Last 3 Months or Most Recently Relevant to Health Maintenance Insurance [address] [place], [place] [address]O [facility] Care Teams Electronic Data Processing Auditor Relationship Specialty Start Date End Date Valdemar Shannon PA-C [address] [place] [address] [email or web address] PCP - General Physician Canvas Cutter 11/12/23 Jeferson Desai MD Obstetrics and Gynecology 09/23/19 Bipin Toro MD 06/22/20 Saturnino Renner MD 46 [facility] 7 [place] [address] Psychiatry 11/22/20 Amando Herrera MD 2150 [facility] 100 [place] [address] Gastroenterology 01/31/21 Tressa Matthews MD [address] [address] Gastroenterology 05/09/22 Acosta Mcqueen MD 175 [place] [address] Neurology 05/29/23 Additional Source Comments The information contained in this document represents components of the legal health record. It is not the complete legal health record.[facility]
--- OUTSIDE RECORDS SUMMARY | 2024-12-29 16:06 | XMS_ITS | Encounter Summary ---
Author Organization [facility] Address [address] [address] Phone Care Team Providers Care Training And Development Head Name Role Phone Jeferson Desai MD Unavailable [phone] Bipin Toro MD Unavailable Saturnino Renner MD Unavailable [phone] Amando Herrera MD Unavailable Tressa Matthews MD Unavailable [phone] Acosta Mcqueen MD Unavailable Valdemar Shannon PA-C Primary Care Provider Encounter Details Date Type Department Care Team (Late st Contact Info) Description 12/28/2024 Documentation [facility] Internal Medicine [address] [place], [place] [phone] Valdemar Shannon PA-C [address] [place] [address] [email or web address] Social History Tobacco Use Types Packs/Day Years [...] high school, GED, job training, learning the Upper Sor[place] language, technical skills, or developing parenting skills)? [...] on file Sexual Orientation Not on file documented as of this encounter Progress Notes * Santa Norman CMA - 12/28/2024 10:39 AM EDT HM updated documented in this encounter Plan of Treatment Upcoming Encounters Date Type Department Care Team (Late st Contact Info) Description 01/04/2025 3:40 PM EDT Office Visit [facility] Internal Medicine [address] [place], [place] [phone] Valdemar Shannon PA-C [address] [place], [place] [id number] [email or web address] documented as of this encounter Procedures Procedure Name Priority Date/Time Associated Diagnosis Comments OUTSIDE ALT LEVEL Routine 09/06/2024 OUTSIDE SERUM CREATININE LEVEL Routine 08/17/2024 documented in this encounter Results * Outside ALT Level (09/06/2024) ALT - External 26 5 - 30 U/L Historical Provider LAB BLOOD ORDERABLES Tiffany l Result * (ABNORMAL) Outside Serum Creatinine Level (08/17/2024) Creatinine, serum - External 0.72(A) 0.8 - 1.3 mg/dL us Historical Provider LAB BLOOD ORDERABLES Tiffany l Result documented in this encounter Visit Diagnoses Not on filedocumented in this encounter Additional Health Concerns Assessment Noted Time PHQ-2 Depression Total Score: 0 06/03/19 25 5:07 PM EST documented as of this encounter Care Teams Training And Development Head Relationship Specialty Start Date End Date Valdemar Shannon PA-C [address] [place], [place] [phone] [email or web address] PCP - General Physician Commercial Project Manager 11/12/23 Jeferson Desai MD Obstetrics and Gynecology 09/23/19 Bipin Toro MD 06/22/20 Saturnino Renner MD [address] [place] [address] Psychiatry 11/22/20 Amando Herrera MD [address] [place] [address] Gastroenterology 01/31/21 Tressa Matthews MD [address] [place] [address] Gastroenterology 05/09/22 Acosta Mcqueen MD [address] [place] [address] Neurology 05/29/23 documented as of this encounter Additional Source Comments The information contained in this document represents components of the legal health record. It is not the complete legal health record.[facility]
--- OUTSIDE RECORDS SUMMARY | 2024-12-29 16:06 | XMS_ITS | Encounter Summary ---
Author Organization [facility] Address [address] [address] Phone Care Team Providers Care Cooking Chef Name Role Phone Jeferson Desai MD Unavailable [phone] Bipin Toro MD Unavailable [phone] Saturnino Renner MD Unavailable [phone] Amando Herrera MD Unavailable [phone] Tressa Matthews MD Unavailable [phone] Acosta Mcqueen MD Unavailable Valdemar Shannon PA-C Primary Care Provider [phone] Encounter Details Date Type Department Care Team (Late st Contact Info) Description 12/23/2024 Orders Only [facility] Internal Medicine [address] [place] [address] Provider, MD Verna [address] [place] [address] Social History Tobacco Use Types Packs/Day Years [...] high school, GED, job training, learning the Taiwanese language, technical skills, or developing parenting skills)? [...] on file documented as of this encounter Plan of Treatment Upcoming Encounters Date Type Department Care Team ([facility] st Contact Info) Description 01/04/2025 3:40 PM EDT Office Visit [facility] Internal Medicine [address] [place] [address] Valdemar Shannon PA-C [address] [place] [address] documented as of this encounter Procedures Procedure Name Priority Date/Time Associated Diagnosis Comments HM MAMMOGRAPHY Routine 12/21/2024 11:37 AM EDT documented in this encounter Results * HM MAMMOGRAPHY FOR RESULT ENTRY ONLY (12/21/2024 11:37 AM EDT) us Historical Provider HEALTH MAINTENANCE Final Result documented in this encounter Visit Diagnoses Not on filedocumented in this encounter Additional Health Concerns Assessment Noted Time PHQ-2 Depression Total Score: 0 06/03/19 25 5:07 PM EST documented as of this encounter Care Teams Cooking Chef Relationship Specialty Start Date End Date Valdemra Shannon PA-C [address] [place] [address] PCP - General Physician [employer] 11/12/23 Jeferson Desai MD Obstetrics and Gynecology 09/23/19 Bipin Toro MD 06/22/20 Saturnino Renner MD 46 [facility] 7 [place] [address] Psychiatry 11/22/20 Amando Herrera MD [address] [address] Gastroenterology 01/31/21 Tressa Matthews MD [address] [address] Gastroenterology 05/09/22 Acosta Mcqueen MD [address] [place] [address] Neurology 05/29/23 documented as of this encounter Additional Source Comments The information contained in this document represents components of the legal health record. It is not the complete legal health record.[facility]
== END 2024-12-29 15:40 | disposition home or self-care (01) ==
LOC: HO.HOS 15:04
PROVIDERS: PCP Physician Assistant Surgical
DX: M65.4 Radial styloid tenosynovitis [de Quervain] (principal)
CPT/HCPCS: 99214

== ENCOUNTER 2025-03-28 11:58 | Day surgery (SDC) | payer OTHER, SELFPAY ==
--- OUTSIDE RECORDS SUMMARY | 2025-03-04 18:07 | XMS_ITS | Encounter Summary ---
Author Organization [facility] Address [address] [employer] [address] [address] Phone Care Team Providers Care Cafeteria Cook Name Role Phone Jeferson Desai MD Unavailable [phone] Bipin Toro MD Unavailable [phone] Saturnino Renner MD Unavailable [phone] Amando Herrera MD Unavailable [phone] Tressa Matthews MD Unavailable [phone] Acosta Mcqueen MD Unavailable Valdemar Shannon PA-C Primary Care Provider [phone] Reason for Visit * Reason Onset Date Comments Follow Up Visit 01/31/2025 ED FUV + 01/23 + spider bites + unable to schedule Triage 01/31/2025 [place] + lower l eg swelling + spider bites Encounter Details Date Type Department Care Team (Late st Contact Info) Description 01/31/2025 Telephone [facility] Internal Medicine [address] [place], [place] [phone] Valdemar Shannon PA-C [address] [place], [place] [phone] [email or web address] Follow Up Visit (ED FUV + 01/23 + spider bites + unable to schedule); Triage ([place] + lower leg swelling + spider bites) Social History Tobacco Use Types Packs/Day Years [...] high school, GED, job training, learning the Swazi language, technical skills, or developing parenting skills)? [...] as of this encounter Progress Notes * Mary Ace - 01/31/2025 5:09 PM EST Patient scheduled with [facility]. * Yoanna Martinez - 01/31/2025 4:25 PM EST [facility] PEN Top Smart Phrases: Emergency Department (ED, ER) Appointment Booking Telephone Encounter 1.Appointment scheduled within 5 calendar days:YES/NO: no? 2.Virtual or in-person appointment: N/A 3.Information related to the patient ER/ED visit: A. Facility Name:[facility] B. Date of ED Visit: 01/23 C. Reason for visit (Diagnosis/Symptoms):? Spider bite, swelling in lower leg close to ankle. Pt was on antibiotics and completed them but swelling is persisting. 4.Is the record of the Emergency Department visit in the chart: YES/NO: no? a. IF NOT, patient was instructed to have records faxed to office, and to bring in a hard copy during the appointment. Central Support Supervisor Wet End (Please do not reply to this user; this inbox is not monitored.) Thank you. documented in this encounter Plan of Treatment Upcoming Encounters Date Type Department Care Team (Late st Contact Info) Description 07/05/2025 3:20 PM EDT Office Visit [facility] Internal Medicine 40 [place] [address] Valdemar Shannon PA-C [address] [place] [address] documented as of this encounter Visit Diagnoses Not on filedocumented in this encounter Additional Health Concerns Assessment Noted Time PHQ-2 Depression Total Score: 0 06/03/19 25 5:07 PM EST documented as of this encounter Care Teams Cafeteria Cook Relationship Specialty Start Date End Date Valdemar Shannon PA-C [address] [place] [address] [email or web address] PCP - General Physician Chef Manager 11/12/23 Jeferson Desai MD [address] [place] [address] Obstetrics and Gynecology 09/23/19 Bipin Toro MD [address] [place] [address] 06/22/20 Saturnino Renner MD [address] [place] [address] Psychiatry 11/22/20 Amando Herrera MD [address] [place] [address] Gastroenterology 01/31/21 Tressa Matthews MD [address] [place] [address] Gastroenterology 05/09/22 Acosta Mcqueen MD [address] [place] [address] Neurology 05/29/23 documented as of this encounter Additional Source Comments The information contained in this document represents components of the legal health record. It is not the complete legal health record.[facility]
--- OUTSIDE RECORDS SUMMARY | 2025-03-04 18:07 | XMS_ITS | Clinical Summary ---
Author Organization [facility] Address [address] [place] [address] Care Team Providers Care Roll Tension Tester Name Role Phone Saurav Irvin Primary Care Provider [phone] Allergies Active Allergy Reactions Criticality Noted Date [...] of 2) 2016 COVID-19 Vaccine (1 - 2024-2 6 season) 2024 Influenza (#1) 2024 RSV (1 - 1-dose 75+ series) 2041 HPV Vaccine (No Doses Required) Completed Hep A Aged Out No longer eligi ble based on patient's age to complete this topic Hib Aged Out No longer eligi ble based on patient's age to complete this topic Meningococcal ACWY Aged Out No longer eligible based on patient's age to complete this topic Care Teams Roll Tension Tester Relationship Specialty Start Date End Date Saurav Irvin [address] [place] [address] PCP - General 11/04/22
--- OUTSIDE RECORDS SUMMARY | 2025-03-04 18:07 | XMS_ITS | Encounter Summary ---
Author Organization [facility] Address [address] [address] Phone Care Team Providers Care Telecommunications Officer Name Role Phone Jeferson Desai MD Unavailable [phone] Bipin Toro MD Unavailable [phone] Saturnino Renner MD Unavailable [phone] Amando Herrera MD Unavailable [phone] Tressa Matthews MD Unavailable [phone] Acosta Mcqueen MD Unavailable Valdemar Shannon PA-C Primary Care Provider [phone] Encounter Details Date Type Department Care Team (Late st Contact Info) Description 02/02/2025 Orders Only [facility] Internal Medicine [address] [place] [address] Provider, MD Verna [address] [place] [address] Social History Tobacco Use Types Packs/Day [...] high school, GED, job training, learning the Moroccan language, technical skills, or developing parenting skills)? [...] Description 07/05/2025 3:20 PM EDT Office Visit [facility] [place] Internal Medicine [address] [place] [address] Valdemar Shannon PA-C [address] [place] [address] [email or web address] documented as of this encounter Procedures Procedure Name Priority Date/Time Associated Diagnosis Comments CREATININE WITH ESTIMATED GLOMERULAR FILTRATION RATE (EGFR) Routine 02/01/2025 7:43 AM EST ALANINE AMINOTRANSFERASE (ALT) Routine 02/01/2025 7:43 AM EST ASPARTATE AMINOTRANSFERASE (AST) Routine 02/01/2025 7:43 AM EST LIPID PANEL Routine 02/01/2025 7:40 AM EST BASIC METABOLIC PANEL (BMP) Routine 02/01/2025 7:40 AM EST documented in this encounter Results * Creatinine with Estimated Glomerular Filtration Rate (eGFR) (02/01/2025 7:43 AM EST) Blood (Blood) Historical Provider MD LAB BLOOD BKR ORDERABLES Final Result Performing Organization Address City/[facility]/ZIP Co de Phone Number EXTERNAL NON-INTERFACED REF LAB * Alanine Aminotransferase (ALT) (02/01/2025 7:43 AM EST) ALT - External 19 EXTER NAL NON-INTERFACED REF LAB Blood (Blood) Historical Provider MD LAB BLOOD BKR ORDERABLES Edited Result - Final Performing Organization Address City/[facility]/ZIP Co de Phone Number EXTERNAL NON-INTERFACED REF LAB * Aspartate Aminotransferase (AST) (02/01/2025 7:43 AM EST) Blood (Blood) Historical Provider MD LAB BLOOD BKR ORDERABLES Final Result Performing Organization Address [facility] de Phone Number EXTERNAL NON-INTERFACED REF LAB * Basic Metabolic Panel (BMP) (02/01/2025 7:40 AM EST) Sodium - External EXTERNAL NON-INTERFACED REF LAB Chloride - External EXTERNAL NON-INTERFACED REF LAB Potassium - External 4.5 EXTERNAL NON-INTERFACED REF LAB CO2 - External EXTER NAL NON-INTERFACED REF LAB BUN - External EXTER NAL NON-INTERFACED REF LAB Creatinine - External 0.87 EXTERNAL NON-INTERFACED REF LAB Glucose - External 90 EXTERNAL NON-INTERFACED REF LAB Calcium - External EXTERNAL NON-INTERFACED REF LAB eGFR - External EXTE RNAL NON-INTERFACED REF LAB Anion Gap - External EXTERNAL NON-INTERFACED REF LAB Blood (Blood) Historical Provider MD LAB BLOOD BKR ORDERABLES Edited Result - Final Performing Organization Address [facility] de Phone Number EXTERNAL NON-INTERFACED REF LAB * Lipid Panel (02/01/2025 7:40 AM EST) HDL - External 59 EXTER NAL NON-INTERFACE D REF LAB Cholesterol, Total - External 181 EXTERNAL NON-INTERFACE D REF LAB Triglycerides - External 71 EXTERNAL NON-INTERFACE D REF LAB LDL, calculated - External 109 EXTERNAL NON-INTERFACE D REF LAB Cardiac Risk Ratio - External EXTERNAL NON-INTERFACE D REF LAB Non-HDL Cholesterol - External EXTERNAL NON-INTERFACE D REF LAB Blood (Blood) Historical Provider MD LAB BLOOD BKR ORDERABLES Edited Result - Final Performing Organization Address [facility] de Phone Number EXTERNAL NON-INTERFACED REF LAB documented in this encounter Visit Diagnoses Not on filedocumented in this encounter Additional Health Concerns Assessment Noted Time PHQ-2 Depression Total Score: 0 06/03/19 25 5:07 PM EST documented as of this encounter Care Teams Telecommunications Officer Relationship Specialty Start Date End Date Valdemar Shannon PA-C [address] [place] [address] [email or web address] PCP - General Physician Engineer Systems 11/12/23 Jeferson Desai MD [address] [address] Obstetrics and Gynecology 09/23/19 Bipin Toro MD [address] [address] 06/22/20 Saturnino Renner MD [address] [place] [address] Psychiatry 11/22/20 Amando Herrera MD [address] [address] Gastroenterology 01/31/21 Tressa Matthews MD [address] [place] [address] Gastroenterology 05/09/22 Acosta Mcqueen MD [address] [place] [address] Neurology 05/29/23 documented as of this encounter Additional Source Comments The information contained in this document represents components of the legal health record. It is not the complete legal health record.[facility]
--- OUTSIDE RECORDS SUMMARY | 2025-03-04 18:07 | XMS_ITS | Encounter Summary ---
Author Organization [facility] Address [address] [address] Phone Care Team Providers Care Clinical Psychology Professor Name Role Phone Jeferson Desai MD Unavailable [phone] Bipin Toro MD Unavailable Saturnino Renner MD Unavailable [phone] Amando Herrera MD Unavailable [phone] Tressa Matthews MD Unavailable [phone] Acosta Mcqueen MD Unavailable [phone] Valdemar Shannon PA-C Primary Care Provider [phone] Encounter Details Date Type Department Care Team (Late st Contact Info) Description 01/31/2025 Orders Only [facility] Internal Medicine [address] [place] [address] Provider, MD Verna [address] [place] [address] Social History Tobacco Use Types Packs/Day [...] high school, GED, job training, learning the [place] language, technical skills, or developing parenting skills)? [...] Description 07/05/2025 3:20 PM EDT Office Visit [facility] Internal Medicine 40 [place] [address] Valdemar Shannon PA-C 40 [place] [address] [email or web address] documented as of this encounter Procedures Procedure Name Priority Date/Time Associated Diagnosis Comments OUTSIDE US IMAGING REPORT ONLY Routine 01/23/2025 5:14 PM EDT documented in this encounter Results * Outside US Imaging??Report Only (01/23/2025 5:14 PM EDT) us Historical Provider MD BATRES US OP Final Res ult documented in this encounter Visit Diagnoses Not on filedocumented in this encounter Additional Health Concerns Assessment Noted Time PHQ-2 Depression Total Score: 0 06/03/19 5:07 PM EST documented as of this encounter Care Teams Clinical Psychology Professor Relationship Specialty Start Date End Date Valdemar Shannon PA-C 40 [place] [address] PCP - General Physician Medical Lab Specialist 11/12/23 Jeferson Desai MD [address] [place] [address] Obstetrics and Gynecology 09/23/19 Bipin Toro MD [address] [place] [address] 06/22/20 Saturnino Renner MD [address] [place] [address] Psychiatry 11/22/20 Amando Herrera MD [address] [address] Gastroenterology 01/31/21 Tressa Matthews MD [address] [place] [address] Gastroenterology 05/09/22 Acosta Mcqueen MD [address] [place] [address] Neurology 05/29/23 documented as of this encounter Additional Source Comments The information contained in this document represents components of the legal health record. It is not the complete legal health record.[facility]
--- OUTSIDE RECORDS SUMMARY | 2025-03-04 18:07 | XMS_ITS | Clinical Summary ---
Author Organization [facility] Address [address] [address] Phone Care Team Providers Care Cardiac Care Unit Nurse Name Role Phone Jeferson Desai MD Unavailable [phone] Bipin Toro MD Unavailable Saturnino Renner MD Unavailable [phone] Amando Herrera MD Unavailable Tressa Matthews MD Unavailable [phone] Acosta Mcqueen MD Unavailable Valdemar Shannon PA-C Primary Care Provider [phone] Allergies Active Allergy Reactions Criticality Noted Date [...] Active Problems Problem Noted Date Diagnosed Date Left leg cellulitis 02/02/2025 Assessment & Plan (02/02/2025 3:55 PM EST): Patient diagnosed with left leg cellulitis following a bug bite, treated with Keflex x 7 days. She reported completing the full course of Keflex and had improvement of symptoms. On exam today there is no erythema, warmth, swelling, or tenderness to palpation of the left lower extremity. Given the absence of these findings, no additional antibiotics are indicated. She does note fluctuating lower extremity swelling, advised use of compression socks and leg elevation. Discussed ER protocol and if symptoms worsen. Routine [facility] 06/09/2024 Assessment & Plan (06/09/2024 8:22 AM EDT): Labs reviewed with patient during her physical. Patient overall is doing well. She is up-to-date on her mammogram and not due for a [employer] exam until next year. She did obtain a [employer]. She is not due for a colonoscopy [...] of DVT or PE follows with a manager army Benign essential hypertension 04/20/2018 Assessment & Plan (01/04/2025 5:01 PM EDT): Patient's blood pressure is well-controlled on Aldactone 25 mg p.o. daily which we will continue. We will obtain a BMP to ensure her electrolytes are within normal limits. Assessment & Plan (06/09/2024 8:23 AM EDT): Well-controlled on verapamil 240 mg daily and spironolactone 25 mg daily. Last CMP reveals normal kidney function Assessment & Plan (11/12/2023 8:14 AM EDT): Well-controlled continue spironolactone 25 mg p.o. daily and verapamil 240 mg p.o. nightly Assessment & Plan (05/09/2022 9:02 AM EST): Well controlled Hyperlipidemia 04/20/2018 Assessment & Plan (01/04/2025 5:02 PM EDT): Patient with a history of hyperlipidemia who is on simvastatin 10 mg p.o. nightly with her last lipid panel being within normal limits back in May 2024. We will continue simvastatin 10 mg p.o. daily and obtain a repeat lipid panel. We will follow-up in 6 months for physical. Assessment & Plan (06/09/2024 8:22 AM EDT): [...] Encounters Date Type Department Care Team Description 02/02/2025 3:40 PM EST Office Visit [facility] Internal Medicine 40 [facility] [address] Candelaria Mario PA-C Left leg cellulitis (Primary Dx) 02/02/2025 Orders Only [facility] Internal Medicine 40 [facility] [place] [address] ProviderVerna MD 02/02/2025 Documentation [facility] Internal [facility] [place] [place] [address] Valdemar Shannon PA-C 01/31/2025 Orders Only [facility] Internal Medicine [address] [place] [address] Provider, MD Verna 01/31/2025 Telephone [facility] Internal Medicine [address] [place] [address] Valdemar Shannon PA-C Follow Up Visit (ED FUV + 01/23 + spider bites + unable to schedule); Triage ([place] + lower leg swelling + spider bites) 01/04/2025 3:40 PM EDT Office Visit [facility] Internal Medicine [address] [place] [address] Valdemar Shannon PA-C Hyperlipidemia, unspecified hyperlipidemia type (Primary Dx); Benign essential hypertension 12/28/2024 Documentation [facility] Internal Medicine [address] [place] [address] Valdemar Shannon PA-C 12/23/2024 Orders Only [facility] Internal Medicine [address] [place] [address] Provider, MD Verna from Last 3 Months Immunizations Immunization Administration Dates Next Due COVID-19 (Pre-01/20) Herlinda Vaccine, [id number], PF 07/04/2020 INFLUENZA, SPLIT VIRUS, TRIV ALENT W/ PRESERVATIVE IM 12/29/2021,12/08/2009 Influenza Quadrivalent Prese rvative Free IM 01/01/2023,01/01/2021,12/31/2018,12/28,12/26/2016,01/04/2016 Influenza Quadrivalent w/ Pr eservative IM 01/18/2022,12/21/2019 Influenza Recombinant Trival ent Preservative Free IM 12/10/2024 Influenza Trivalent MDCK Pre servative Free IM [...] high school, GED, job training, learning the Belarusian language, technical skills, or developing parenting skills)? [...] Sign Reading Time Taken Comments Blood Pressure 110/70 02/02/2025 3:38 PM EST Pulse 80 02/02/2025 3:38 PM EST Temperature 36.2 C (97.2 F) 02/02/2025 3:38 PM EST Respiratory Rate 21 02/02/2025 3:38 PM EST Oxygen Saturation 98% 02/02/2025 3:38 PM EST Inhaled Oxygen Concentration - - Weight 75.9 kg (167 lb 6.4 oz) 02/02/2025 3:38 P M EST Height 168.9 cm (5' 6.5 ) 02/02/2025 3:38 PM EST Body Mass Index 26.62 02/02/2025 3:38 PM EST Plan of Treatment Upcoming Encounters Date Type Department Care Team (Late st Contact Info) Description 07/05/2025 3:20 PM EDT Office Visit [facility] Internal Medicine [address] [place] [address] Valdemar Shannon PA-C 40 [place] [address] Health Maintenance Due Date Last Done Comments HIV ONE-TIME SCREENING (18-65 YEARS) 1984 COLOGUARD 08/28/2011 FIT TEST 08/28/2011 FOBT 08/28/2011 SIGMOIDOSCOPY 08/28/2011 VIRTUAL COLONOSCOPY 08/28/2011 PNEUMOCOCCAL VACCINES (50+ years) (2 of 2 - PCV) 2016 09/16/2013 COVID-19 VACCINE ( season) 2025 12/10/2024, 11/26/2023, 01/01/2023, Additional history exists DEPRESSION SCREENING 06/02/2025 06/02/2024 BLOOD PRESSURE 08/02/2025 02/02/2025 PAP SMEAR 09/25/2025 09/25/2022, 08/30, 09/13/2019, Additional history exists POTASSIUM LEVEL 02/01/2026 02/01/2025, 05/29, 11/12/2023, Additional history exists COLONOSCOPY 08/07/2026 11/11/2023, 10/29, 11/07/2016 COLORECTAL CANCER SCREENING 08/07/2026 MAMMOGRAM 12/21/2026 12/21/2024, 10/29, 11/27/2019, Additional history exists SCREENING FOR DIABETES 02/02/2028 , 05/04/2022, 10/05/2020 LIPID PANEL 02/01/2030 02/01/2025, 05/29, 05/29/2023, Additional history exists Adult Td,Tdap Booster 11/25/2033 11/26/2023 , 05/29/2023, 09/16/2013 RSV VACCINE (1 - 1-dose 75+ series) 2041 ZOSTER VACCINES Completed 01/27/2019, 10/07/2018 HEPATITIS C SCREENING Completed 04/21/2024 INFLUENZA VACCINE Completed 12/10/2024, , 01/01/2023, Additional history exists SMOKING STATUS SCREENING (Once After 26 Yrs) Completed 02/02/2025 HEPATITIS A VACCINES Aged Out No long [...] AMINOTRANSFERASE (AST) Routine 02/01/2025 7:43 AM EST BASIC METABOLIC PANEL (BMP) Routine 02/01/2025 7:40 AM EST LIPID PANEL Routine 02/01/2025 7:40 AM EST OUTSIDE US IMAGING REPORT ONLY Routine 01/23/2025 5:14 PM EDT HM MAMMOGRAPHY Routine 12/21/2024 11:37 AM EDT OUTSIDE HEPATITIS C VIRUS SCREENING Routine 04/21/2024 HM COLONOSCOPY FOR RESULT ENTRY ONLY Routine 11/11/2023 PAP TEST Routine 09/25/2022 OUTSIDE GLUCOSE FASTING Routine 10/05/2020 from Last 3 Months or Most Recently Relevant to Health Maintenance Results * Creatinine with Estimated Glomerular Filtration Rate (eGFR) (02/01/2025 7:43 AM EST) Blood (Blood) Historical Provider MD LAB BLOOD BKR ORDERABLES Final Result EXTERNAL NON-INTERFACED REF LAB * Alanine Aminotransferase (ALT) (02/01/2025 7:43 AM EST) ALT - External 19 EXTER NAL NON-INTERFACED REF LAB Blood (Blood) Historical Provider MD LAB BLOOD BKR ORDERABLES Edited Result - Final Performing Organization Address [facility] de Phone Number EXTERNAL NON-INTERFACED REF LAB * Aspartate Aminotransferase (AST) (02/01/2025 7:43 AM EST) Blood (Blood) Historical Provider MD LAB BLOOD BKR ORDERABLES Final Result Performing Organization Address [facility] de Phone Number EXTERNAL NON-INTERFACED REF [...] Edited Result - Final Performing Organization Address [facility] de Phone Number EXTERNAL NON-INTERFACED REF [...] Edited Result - Final Performing Organization Address [facility] de Phone Number EXTERNAL NON-INTERFACED REF LAB * Outside US Imaging??Report Only (01/23/2025 5:14 PM EDT) Result [facility] Historical Provider IMG US OP Final Res ult * HM MAMMOGRAPHY FOR RESULT ENTRY ONLY (12/21/2024 11:37 AM EDT) Historical Provider HEALTH MAINTENANCE Final Result * Outside Hepatitis C Virus Screening (04/21/2024) Hepatitis C Screening - External Neg Result [facility] Historical Provider LAB BLOOD ORDERABLES Tiffany l Result * HM COLONOSCOPY FOR RESULT ENTRY ONLY (11/11/2023) Pathologist [facility] Colonoscopy External Result [facility] Historical Provider HEALTH MAINTENANCE Final Result * Pap Test (09/25/2022) Result [facility] Kerri Simmons MAT INSPECTOR CYTOLOGY ORDERABLES Edited Resu lt - Final * (ABNORMAL) Outside Glucose,Fasting (10/05/2020) Glucose, fasting - External 101(A) 65 - 99 mg/dL Result [facility] Historical Provider LAB BLOOD ORDERABLES Tiffany l Result from Last 3 Months or Most Recently Relevant to Health Maintenance Insurance [facility] [address] [place] [address] [facility] H[facility] Care Teams Cardiac Care Unit Nurse Relationship Specialty Start Date End Date Valdemar Shannon PA-C [address] [place] [address] [email or web address] PCP - General Physician Gaming Investigator 11/12/23 Jeferson Desai MD [facility] [address] [address] Obstetrics and Gynecology 09/23/19 Bipin Toro MD [address] [place] [address] 06/22/20 Saturnino Renner MD [address] [place] [address] Psychiatry 11/22/20 Amando Herrera MD [address] [place] [address] Gastroenterology 01/31/21 Tressa Matthews MD [address] [place] [address] Gastroenterology 05/09/22 Acosta Mcqueen MD [address] [place] [address] Neurology 05/29/23 Additional Source Comments The information contained in this document represents components of the legal health record. It is not the complete legal health record.[facility]
[2025-03-28 12:08] VITALS: BP 118/59; PULSE 68; RESP 16; TEMP 37.1; O2SAT 98; BMI 26.6
--- NOTE | 2025-03-28 12:48 | MHC.SHP ---
Pre-Procedural Eval Section A - 24 Hr Update-Section A only Date of Service: 03/28/25 The patient is an INPATIENT: No Changes since office visit: No Cold of Flu in the past 2 weeks, No New Medical Problems, No Changes in Medication and No Patient answered all questions The patient has been examined within 24 hours of the surgical procedure. The History & Physical has been completed within 30 days and I have reviewed it.: Yes Section B - Complete if H&P > 30 days Chief Complaint: Radial styloid tenosynovitis [de Quervain] Allergies: Allergies Allergy/AdvReac Type Severity Reaction Status Date / Time Sulfa (Sulfonamide Allergy Intermediate Itching Verified 12/29/24 15:22 Antibiotics) acetaminophen (From Percocet) Allergy Mild rash, itchy Verified 12/29/24 15:22 oxycodone (From Percocet) Allergy Mild rash, itchy Verified 12/29/24 15:22 hydrocet Allergy Mild rash, itchy Uncoded 12/29/24 15:22 Plan Diagnosis/Plan: Unchanged I have reviewed the history and physical and performed a pertinent physical examination on my patient. No changes have occurred unless specified. Time Spent With Patient Time: Total time managing care of this patient today ____ minutes.
--- NOTE | 2025-03-28 12:50 | W.PM.OPN ---
Operative Note Operative Note Date of Service: 03/28/25 Narrative: Operative Note Preop diagnosis: 1. Right DeQuervain's tenosynovitis Postop diagnosis: 1. Right DeQuervain's tenosynovitis Procedure: 1. Right 1st dorsal compartment release Surgeon: Rosario Champagne MD Orchid Transplanter: None Anesthesia: local block using 1% lidocaine with epinephrine Findings: Thickened 1st dorsal compartment. EPB in a separate compartment with muscle extending down to the compartment EBL: Less than 5 mL Tourniquet time: None Specimens: None Complications: None Disposition: Brought to recovery room in stable condition Plan: Follow-up for 7-10 days for wound check and suture removal Indications: The patient is 59 years old, with right DeQuervain's tenosynovitis that has been unresponsive to nonoperative management. The risks and benefits of operative treatment including but not limited to risk of damage to blood vessels, nerves, tendons, infection, persistent pain, persistent symptoms, recurrence or possible need for additional surgery were discussed with the patient and the patient wishes to proceed with surgery. Procedure: Once consent was obtained a local block was performed in the preop area using a combination of 1% lidocaine with epinephrine. The patient was then brought back to the operating suite and placed on the operative table in supine position. The right upper extremity was prepped and draped in a standard surgical fashion. Once assured that we had a good block, a 1.5 cm longitudinal incision was made centered over the 1st dorsal compartment as it passed over the radial styloid of the right wrist. The incision was made through the skin to the subcutaneous tissues using a #15 blade. Careful dissection was made down to the level of the 1st dorsal compartment using tenotomy scissors, with care being taken to protect the nearby branches of the superficial radial nerve. Once the 1st dorsal compartment was exposed, A longitudinal incision was made in the 1st dorsal compartment 1st using a #15 blade, then using tenotomy scissors under direct visualization. The 1st dorsal compartment was noted to be thickened, and EPB was noted to be in a separate compartment. I also opened the compartment over the EPB tendon longitudinally using iris scissors under direct visualization. There was a small amount of muscle extending down to the compartment which may have been associated with her symptoms.. Following our release, we saw smooth gliding abductor pollicis longus and extensor pollicis brevis tendons. I also evaluated the brachioradialis tendon just deep to the 1st dorsal compartment where it approached the radial styloid. There were no abnormalities visualized in this tendon. Once satisfied with our 1st dorsal compartment release the wound was copiously irrigated with normal saline and hemostasis was obtained with a brief period of local pressure. The skin edges were reapproximated with some 5.0 nylon suture material. A sterile dressing was applied. The patient appears to have tolerated the procedure well and with no complications. All digits were well vascularized at the conclusion of the case.
[2025-03-28 13:32] VITALS: BP 115/56; PULSE 68; RESP 18; O2SAT 96
== END 2025-03-28 13:34 | disposition home or self-care (01) ==
PROVIDERS: PCP Physician Assistant Surgical; Visit Provider Orthopaedic Surgery
PROC: (CPT 25000; principal; 2025-03-28 13:10)
DX: M65.4 Radial styloid tenosynovitis [de Quervain] (principal); M19.90 Unspecified osteoarthritis, unspecified site; I83.93 Asymptomatic varicose veins of bilateral lower extremities; Z88.2 Allergy status to sulfonamides; Z88.5 Allergy status to narcotic agent; Z98.890 Other specified postprocedural states
CPT/HCPCS: 25000; J0165; J2003

== ENCOUNTER → 2025-03-28 11:58 | Outpatient (BNV) | payer OTHER, SELFPAY | PROVIDERS: PCP Physician Assistant Surgical; Visit Provider Orthopaedic Surgery | DX: M65.4 Radial styloid tenosynovitis [de Quervain] (principal) | CPT/HCPCS: 25000 ==